=== PATIENT | male | born 1945 | race Caucasian/White ===

== ENCOUNTER 2019-04-05 10:21 | Outpatient (RCR) | payer MEDICARE, MEDICAID, SELFPAY | END 2019-04-23 00:01 | LOC: WOUND 10:21 | PROVIDERS: Family Provider Family Medicine; Visit Provider Surgery | DX: E11.621 Type 2 diabetes mellitus with foot ulcer (principal); L97.422 Non-pressure chronic ulcer of left heel and midfoot with fat layer exposed; I96 Gangrene, not elsewhere classified | CPT/HCPCS: 11042 ×2 ==

== ENCOUNTER → 2019-05-06 18:12 | Outpatient (BNVA) | payer MEDICARE, MEDICAID, SELFPAY | PROVIDERS: Family Provider Family Medicine; PCP Family Medicine; Visit Provider Family Medicine | DX: E11.40 Type 2 diabetes mellitus with diabetic neuropathy, unspecified (principal); E11.621 Type 2 diabetes mellitus with foot ulcer; L97.411 Non-pressure chronic ulcer of right heel and midfoot limited to breakdown of skin; I11.0 Hypertensive heart disease with heart failure; I50.9 Heart failure, unspecified; J44.9 Chronic obstructive pulmonary disease, unspecified; I73.9 Peripheral vascular disease, unspecified; K21.9 Gastro-esophageal reflux disease without esophagitis | CPT/HCPCS: 80053; 83036; 85025 ==

== ENCOUNTER 2019-05-24 12:55 | Outpatient (RCR) | payer MEDICARE, MEDICAID, SELFPAY | END 2019-05-24 23:59 | disposition home or self-care (01) | LOC: WOUND 12:55 | PROVIDERS: Family Provider Family Medicine; PCP Family Medicine; Visit Provider Surgery | DX: E11.621 Type 2 diabetes mellitus with foot ulcer (principal); L97.422 Non-pressure chronic ulcer of left heel and midfoot with fat layer exposed; L97.412 Non-pressure chronic ulcer of right heel and midfoot with fat layer exposed; I96 Gangrene, not elsewhere classified | CPT/HCPCS: 11042; L3260 ==

== ENCOUNTER 2019-06-21 08:42 | Outpatient (RCR) | payer MEDICARE, MEDICAID, SELFPAY ==
--- NOTE | 2019-06-03 12:47 | XR_ITS ---
WS: [id number] Right foot, 3 views, 06/03/2019 Clinical Data: PAIN/REDNESS Comparison: Right foot, 08/09/2018. Findings: A distal right fifth metatarsal has been resected. No evidence of osteomyelitis is seen. The phalange s and remainder of the metatarsals are unremarkable. The tarsal bones are normal. There are calcifica tions in the overton of the small arteries of the distal leg. XR/XR foot RT min 3V* [id number] Impression: 1. 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 2. No evidence of osteomyelitis.
== END 2019-06-22 23:59 | disposition home or self-care (01) ==
LOC: WOUND 08:42
PROVIDERS: Family Provider Family Medicine; PCP Family Medicine; Visit Provider Surgery
DX: E11.621 Type 2 diabetes mellitus with foot ulcer (principal); L97.422 Non-pressure chronic ulcer of left heel and midfoot with fat layer exposed; M79.671 Pain in right foot; Z89.421 Acquired absence of other right toe(s)
CPT/HCPCS: 11042; 73630

== ENCOUNTER 2019-07-19 11:46 | Outpatient (RCR) | payer MEDICARE, MEDICAID, SELFPAY ==
--- NOTE | 2019-07-19 | XR_ITS ---
WS: [id number] LEFT FOOT: 3 VIEW(S) TECHNIQUE: PA, oblique and lateral. HISTORY: PAIN, REDNESS, NON HEALING ULCER COMPARISON: 06/03/2019 No acute fracture or dislocation. Normal tarsal/metatarsal alignment. Soft tissue ulceration posterior to the calcaneus is not identified radiographically. There is a smal l amount of soft tissue edema. There is calcification in the soft tissue over the plantar surface of the calcaneus. Extensive arterial calcification. No osteomyelitis. XR/XR foot LT min 3V* [id number] IMPRESSION: No osteomyelitis. Soft tissue ulceration not identified radiographically. Peripheral arterial disease.
== END 2019-07-23 23:59 | disposition home or self-care (01) ==
LOC: WOUND 11:46
PROVIDERS: Family Provider Family Medicine; PCP Family Medicine; Visit Provider Surgery
DX: E11.621 Type 2 diabetes mellitus with foot ulcer (principal); L97.422 Non-pressure chronic ulcer of left heel and midfoot with fat layer exposed; M79.672 Pain in left foot; I73.9 Peripheral vascular disease, unspecified
CPT/HCPCS: 11042; 73630

== ENCOUNTER 2019-08-02 10:01 | Outpatient (CLI) | payer MEDICARE, MEDICAID, SELFPAY ==
--- NOTE | 2019-08-02 10:12 | CT_ITS ---
NOTE: Report was unsigned for reason: Order was edited. Original Signature date and time was: 08/02/19 1200 WS: [id number] CT LEFT FOOT, WITH AND WITHOUT CONTRAST. HISTORY: PAIN,REDNESS,NON HEALING ULCER, ATTENTION: LEFT HEEL R/O osteomyelitis Technique: All CT scans at [facility] use at least one of these dose optimization techniques: automated exposure control; mA and/or kV adjustment per patient size (includes targeted exams where dose is matched to clinical indication); or iterative reconstruction. DLP: 1405.04 mGy-cm. Contrast: Visipaque 95 mL IV. COMPARISON: LEFT foot radiograph 07/19/2019. Superficial soft tissue ulceration over the plantar surface of the calcaneus. Ulceration extends over a width of 9 mm. The soft tissue ulceration extending into the plantar soft tissues to the plantar fascia and the calcaneus. The entire phlegmonous collection measures 2.5 x 3.0 x 1.2 cm. There is focal infiltrating fluid centrally consistent with an abscess measuring 1.2 x 0.9 cm. There is also abundant soft tissue edema surrounding the posterior foot. Cortex of the calcaneus is intact. No osteomyelitis. Inflammatory process does extend to the plantar surface of the calcaneus. Distal Achilles tendon is intact. There is increase fluid along the distal peroneus [facility] [id number] IMPRESSION: 1. No evidence for osteomyelitis or bone destruction. 2. Soft tissue ulceration along the plantar surface at the level of the calcan eus with the fluid distended tract extending towards the calcaneus. There is a central 1.2 x 0.9 cm abscess with a large amount of surrounding phlegmonous roro nges and cellulitis centered over the plantar surface of the calcaneus.
[2019-08-02 11:16] LABS: Blood Urea Nitrogen 23 mg/dL (8-23)
[2019-08-02] MEDS: iodixanol 320 mg/mL 100mL Btl IV (11:46)
== END 2019-08-02 10:02 | disposition home or self-care (01) ==
LOC: RADWPI 10:08
PROVIDERS: Family Provider Family Medicine; PCP Family Medicine; Visit Provider Surgery
DX: M79.672 Pain in left foot (principal); E11.621 Type 2 diabetes mellitus with foot ulcer; L97.529 Non-pressure chronic ulcer of other part of left foot with unspecified severity
CPT/HCPCS: 11043; 73701; 73702; 82565; 84520; Q9967

== ENCOUNTER 2019-08-06 13:12 | Emergency (ER) | payer MEDICARE, MEDICAID, SELFPAY ==
[2019-08-06 13:24] VITALS: BP 120/83; PULSE 80; RESP 14; TEMP 36.9; O2SAT 98; BMI 27.4
--- NOTE | 2019-08-06 13:39 | ED_ITS ---
HPI - Wound/Laceration General: Chief Complaint: Wound/Laceration Stated Complaint: fever Time Seen by Provider: 08/06/19 13:33 History of Present Illness: HPI narrative: Patient is a 74-year-old male who comes to the ED for evaluation of chronic foot ulcer. Patient's sister was present since the patient has a mental disability. Patient was sent over to the ED by wound care clinic. Patient had a temperature of 99 ?F with increasing erythema and warmth around left foot ulcer. The wound clinic wanted patient to come to the ED to be evaluated and get IV antibiotics. Patient had a CT of his left foot done last Monday to evaluate for any bone involvement. Patient is also complaining of increased pain around foot ulcer. Associated symptoms: Reports fever(s); Denies chills, nausea or vomiting Review of Systems Const: Reports: fever; Denies: chills or fatigue Eyes: Denies: change in vision or eye discomfort ENMT: Denies: throat pain, painful swallowing, nasal discharge or nasal congestion Card: Denies: chest pain, palpitations, edema, swelling of feet/ankles, shortness of breath on exertion or shortness of breath when lying down Resp: Denies: shortness of breath, productive cough or non-productive cough GI: Denies: abdominal pain, nausea, vomiting, diarrhea, constipation or blood in stool : Denies: flank pain, difficulty urinating, painful urination or blood in urine Musc: Denies: neck pain, back pain or extremity swelling Skin/Breast: Reports: new lesion (chronic Left foot ulcer); Denies: rash Neuro: Denies: headache, numbness in extremities or weakness in extremities [facility] ED PFSH: Medical History BPH (benign prostatic hyperplasia) Congestive heart failure Diabetes mellitus with diabetic neuropathy, without long-term current use of insulin Diabetic foot ulcer GERD (gastroesophageal reflux disease) Hypertension PAD (peripheral artery disease) S/P angiogram of extremity Unspecified intellectual disabilities Surgical History S/P TURP (transurethral resection of prostate) Social History Smoking and tobacco status: never smoked Second hand smoke exposure: No Smoking risk assessment/counseling performed?: No Alcohol intake: never Desire information about alcohol rehabilitation?: No Counseling given: No Desire information about substance/drug rehabilitation?: No Counseling given: No Current occupational status: disabled Current gender identity: Male Physical Exam Const: COMMON NORMALS: no apparent distress and alert EXAM LIMITATIONS: other limitations (Pt has a mental disability and Sister is dry transfer man.) HENMT: COMMON NORMALS: normocephalic HEAD & SCALP: normocephalic MOUTH: oral and palatal mucosa normal THROAT: posterior oropharynx normal and uvula midline Neck/C-Spine: COMMON NORMALS: supple GENERAL: Yes normal visual inspection Resp: COMMON NORMALS: normal respiratory effort, no retractions, no use of accessory muscles and clear to auscultation bilaterally AUSCULTATION: clear to auscultation bilaterally Cardio: COMMON NORMALS: regular rate, regular rhythm, S1 normal heart sound, S2 normal heart sound, no gallops, no clicks, no murmurs and peripheral pulses 2+ throughout RATE: regular rate RHYTHM: regular rhythm HEART SOUNDS: S1 normal and S2 normal PERIPHERAL PULSES: pulses 2+ throughout GI: COMMON NORMALS: normal to inspection, nondistended, normoactive bowel sounds, soft to palpation, non-tender and no masses PALPATION: Yes soft : COMMON NORMALS: Yes no CVA tenderness BLADDER/KIDNEY EXAM: Yes no CVA tenderness Back/Pelvis: COMMON NORMALS: no CVA tenderness Extremity: COMMON NORMALS: normal capillary refill GENERAL: Yes normal exam except as noted LEFT LOWER EXTREMITY: Yes foot & digits Left foot and digits: Yes inspection (1 cm chronic ulcer that has packing in it. There is surrounding erythema on the heel and medial ankle.) Neuro: SENSORIUM/ORIENTATION: Yes alert Skin: WOUNDS: Yes wounds noted (Wound had packing inside of it.) size (1cm), drainage and with surrounding erythema Course Vital Signs: Vital signs: Vital Signs Temperature 98.5 F 08/06/19 13:24 Pulse Rate 83 08/06/19 18:16 Respiratory Rate 16 08/06/19 18:16 Blood Pressure 148/66 08/06/19 18:16 Pulse Oximetry 97 08/06/19 18:16 MDM - Wound/Laceration MDM Narrative: Medical decision making narrative: Patient is a 74-year-old male who comes to the ED with a chronic foot ulcer. Patient was sent over by wound care for IV antibiotics due to patient having an elevated temperature and warmth and redness around the ulcer. Patient had a CT of the left lower extremity on Monday, August 01 and I have reviewed the results and it showed no osteomyelitis or bone destruction present. While here in the ED, x-ray of left foot did not show any signs of osteomyelitis. Labs?remarkable for elevated white blood cell count 10.9 and a creatinine of 1.7. Patient has a history of elevated creatinine and has known chronic kidney disease. ESR was 68 and CRP was 115. Patient was given IV antibiotics while here in the ED vancomycin and Rocephin. Patient was then discharged and he has his next follow-up appointment with wound care in a couple days (Monday, August 08). I sent him home with a prescription for Bactrim. Patient and his sister understood and agreed with plan. Lab Data: Attestation: I reviewed the patient's lab results. Labs: Lab Results 08/06/19 08/06/19 08/06/19 Range/Units 14:28 14:28 14:28 WBC 10.9 H (4.0-10.0) 10^3/ uL RBC 4.12 (4.1-5.3) 10^6/u L Hgb 11.5 L (11.7-16.6) g/dL Hct 37.0 L (42.0-52.0) % MCV 89.8 (80-94) fL MCH 27.9 L (28.0-34.0) pg MCHC 31.1 (30.0-36.0) g/dL RDW 12.7 (12.1-15.1) % Plt Count 224 (130-400) 10^3/c mm MPV 10.5 H (7.4-10.4) fL Neut % (Auto) 72.1 % Lymph % (Auto) 11.5 % [place] % (Auto) 14.3 % Eos % (Auto) 1.1 % Baso % (Auto) 0.3 % Neut # (Auto) 7.9 H (1.8-7.7) 10^3/u L Lymph # (Auto) 1.3 (0.8-4.8) 10^3/u L [place] # (Auto) 1.6 H (0.2-0.9) 10^3/u L Eos # (Auto) 0.1 (0.0-0.8) 10^3/u L Baso # (Auto) 0.0 (0.0-0.1) 10^3/u L Nucleated RBC % (a uto) 0 % Nucleated RBCs # 0.0 /100WBC ESR 68 H (0-10) mm/hr Sodium 135 L (136-145) mmol/L Potassium 3.9 (3.5-5.1) mmol/L Chloride 95 L (98-107) mmol/L Carbon Dioxide 28 (22-29) mmol/L Anion Gap 15.9 (5-19) BUN 25 H (8-23) mg/dL Creatinine 1.7 H (0.7-1.2) mg/dL Glucose 136 H (65-115) mg/dL Calculated Osmolal ity 279 L (285-295) mOsm/k g Calcium 9.2 (8.5-10.5) mg/dL Total Bilirubin 0.4 (0.15-1.2) mg/dL AST 13 (0-40) U/L ALT 14 (0-41) U/L Alkaline Phosphata se 73 (40-130) IU/L C-Reactive Protein 115.4 H (0.0-4.9) mg/L Total Protein 7.1 (6.6-8.7) g/dL Albumin 3.4 L (3.5-5.2) g/dL Globulin 3.7 (1.3-4.6) g/dL Imaging Data^: Xray Ortho: Attestation: I personally reviewed and interpreted this imaging study as follows: Radiologist's impression: [address] [address] XRay Report Signed Patient: Macario Miller Unit #: [id number] : 1945 Acct#:[id number] Age/Sex: 74 / M ADM Date: 08/06/19 Loc: ER Room/Bed: Attending Dr: Ordering Provider/Ordering MD: Marbin Jiménez Date of Service: 08/06/19 Procedure(s): XR foot LT 2V 46514 Accession Number(s): [id number] Report Number: [id number] WS: [id number] LEFT FOOT: 2 VIEW(S) TECHNIQUE: PA and lateral. HISTORY: left foot pain with chronic ulcer COMPARISON: 07/19/2019 No acute fracture or dislocation. Soft tissue ulceration over the plantar surface of the calcaneus measures 8 mm in diameter. Ulceration extends 12 mm into the soft tissue. Vascular calcifications. Osteopenia. XR/XR foot LT 2V 17775 IMPRESSION: Soft tissue ulceration on the plantar surface of the foot at the level of the calcaneus. No osteomyelitis. Dictated By: Summer Chiu DO Signed By: Summer Chiu DO Signed Date/Time: 08/06/191455 DD/ 53 Discharge Plan Discharge Patient Disposition: Home, Self-Care Clinical Impression: Diabetic foot ulcer Qualifiers: Diabetic foot ulcer location: heel Diabetes mellitus type: type 2 Laterality: left Non-pressure ulcer stage: unspecified non-pressure ulcer stage Qualified Code(s): E11.621 - Type 2 diabetes mellitus with foot ulcer Cellulitis Qualifiers: Site of cellulitis: extremity Site of cellulitis of extremity: lower extremity Laterality: left Qualified Code(s): L03.116 - Cellulitis of left lower limb Condition: Stable Prescriptions: New Bactrim DS 800-160 mg tablet 1 tab PO BID 10 Days Qty: 20 RF: 0 No Action aspirin [Adult Aspirin Regimen] 81 mg tablet,delayed release (DR/EC) 81 mg PO DAILY RF: 0 furosemide 20 mg tablet 10 mg PO BID 30 Days Qty: 30 RF: 5 glipizide 10 mg tablet 10 mg PO DAILY 30 Days Qty: 30 RF: 5 metformin 500 mg tablet extended release 24 hr 1,000 mg PO .BEDTIME 30 Days Qty: 30 RF: 5 potassium chloride 10 mEq capsule, extended release 10 meq PO DAILY 30 Days Qty: 30 RF: 5 (DME) Accu-Chek Kinsey Plus test strp Strip See Rx Instructions .ROUTE .MEDSUPPLY Qty: 10 RF: 0 tamsulosin 0.4 mg capsule 0.4 mg PO .BEDTIME RF: 0 vitamin B complex [B Complex-Vitamin B12] Tablet 1 tab PO DAILY RF: 0 zinc 50 mg tablet ? mg PO DAILY RF: 0 cimetidine 200 mg tablet 200 mg PO BID 30 Days Qty: 60 RF: 5 miscellaneous medical supply Misc See Rx Instructions miscellaneous .COMPLEX Qty: 1 RF: 0 ranitidine HCl 75 mg Tablet 75 mg PO DAILY RF: 0 Discharge Orders: Discharge Order (Routine); Ordered 08/06/19 Ordered By: Marbin Jiménez Referrals: Rea Giles MD [Primary Care Provider] - Discharge Diet: Regular Discharge Activity: Resume usual activity Patient Instructions: Cellulitis (ED), Diabetic Foot Ulcers (ED) Activity Restrictions/Additional Instructions: Follow-up at your next wound care appointment on Monday. Take full course of antibiotic as prescribed. Patient take Tylenol 500 mg as needed for any fevers or pain. Make sure patient drinks plenty of fluids and stays hydrated. Discharge Date/Time: 08/06/19 18:17 Coding Level of Care Code ED [employer] for Solo Fwd Exam Comprehensive
--- NOTE | 2019-08-06 14:20 | XR_ITS ---
WS: [id number] LEFT FOOT: 2 VIEW(S) TECHNIQUE: PA and lateral. HISTORY: left foot pain with chronic ulcer COMPARISON: 07/19/2019 No acute fracture or dislocation. Soft tissue ulceration over the plantar surface of the calcaneus measures 8 mm in diameter. Ulceratio n extends 12 mm into the soft tissue. Vascular calcifications. Osteopenia. XR/XR foot LT 2V [id number] IMPRESSION: Soft tissue ulceration on the plantar surface of the foot at the level of the c alcaneus. No osteomyelitis.
[2019-08-06 14:40] VITALS: PULSE 73; RESP 16; O2SAT 97
[2019-08-06 14:50] LABS: Basophils % 0.3 %; Eosinophils # 0.1 10^3/uL (0.0-0.8); Eosinophils % 1.1 %; Hemoglobin 11.5 g/dL (11.7-16.6); Lymphocytes # 1.3 10^3/uL (0.8-4.8); Lymphocytes % 11.5 %; Mean Corpuscular HGB Conc 31.1 g/dL (30.0-36.0); Mean Corpuscular Hemoglobin 27.9 pg (28.0-34.0); Mean Corpuscular Volume 89.8 fL (80-94); Mean Platelet Volume 10.5 fL (7.4-10.4); Monocytes # 1.6 10^3/uL (0.2-0.9); Monocytes % 14.3 %; Neutrophils # 7.9 10^3/uL (1.8-7.7); Neutrophils % 72.1 %; Nucleated Red Blood Cells % 0 %; Platelet Count 224 10^3/cmm (130-400); Red Blood Count 4.12 10^6/uL (4.1-5.3); Red Cell Distribution Width 12.7 % (12.1-15.1); White Blood Count 10.9 10^3/uL (4.0-10.0)
[2019-08-06] MEDS: cefTRIAXone 1,000 MG in sodium chloride 0.9% (plus) 50 ML 100 MG IV (14:51)
[2019-08-06] MEDS: sodium chloride 0.9% 500 ML IV (14:51)
[2019-08-06 15:05] LABS: Alanine Aminotransferase 14 U/L (0-41); Albumin Level 3.4 g/dL (3.5-5.2); Alkaline Phosphatase 73 IU/L (40-130); Anion Gap 15.9 (5-19); Aspartate Amino Transferase 13 U/L (0-40); Blood Urea Nitrogen 25 mg/dL (8-23); Calcium 9.2 mg/dL (8.5-10.5); Carbon Dioxide 28 mmol/L (22-29); Chloride 95 mmol/L (98-107); Globulin 3.7 g/dL (1.3-4.6); Glucose 136 mg/dL (65-115); Osmolality Calculated 279 mOsm/kg (285-295); Potassium 3.9 mmol/L (3.5-5.1); Sodium 135 mmol/L (136-145); Total Bilirubin 0.4 mg/dL (0.15-1.2); Total Protein 7.1 g/dL (6.6-8.7)
[2019-08-06 16:00] VITALS: BP 122/63; RESP 16; O2SAT 96
[2019-08-06 16:02] LABS: Erythrocyte Sedimentation Rate 68 mm/hr (0-10)
[2019-08-06 16:25] LABS: C Reactive Protein 115.4 mg/L (0.0-4.9)
[2019-08-06 17:00] VITALS: BP 123/70; PULSE 76; RESP 15; O2SAT 98
[2019-08-06 18:16] VITALS: BP 148/66; PULSE 83; RESP 16; O2SAT 97
== END 2019-08-06 18:17 | disposition home or self-care (01) ==
PROVIDERS: Emergency Provider Physician Assistant; Family Provider Family Medicine; PCP Family Medicine
DX: E11.621 Type 2 diabetes mellitus with foot ulcer (principal); L97.529 Non-pressure chronic ulcer of other part of left foot with unspecified severity; L03.116 Cellulitis of left lower limb; N40.0 Benign prostatic hyperplasia without lower urinary tract symptoms; I11.0 Hypertensive heart disease with heart failure; I50.9 Heart failure, unspecified; E11.40 Type 2 diabetes mellitus with diabetic neuropathy, unspecified; Z79.4 Long term (current) use of insulin; K21.9 Gastro-esophageal reflux disease without esophagitis; Z79.82 Long term (current) use of aspirin
CPT/HCPCS: 11043; 12345; 73620; 80053; 85025; 85651; 86140; 87040; 96365; 96366; 96367; 99283; J0696; J3370; J7040; J7050

== ENCOUNTER 2019-08-09 11:50 | Inpatient (IN) | payer MEDICARE, MEDICAID, SELFPAY ==
[2019-08-09 12:05] VITALS: BP 135/74; PULSE 101; RESP 18; TEMP 36.8; O2SAT 98; BMI 33.6
--- NOTE | 2019-08-09 12:30 | ECG_ITS ---
Measurements Intervals [place] Rate: 79 P: 22 CT: 193 QRS: -16 QRSD: 91 T: -13 QT: 360 QTc: 414 SINUS RHYTHM MINIMAL VOLTAGE CRITERIA FOR LVH, CONSIDER NORMAL VARIANT [MEETS CRITERIA IN ONE OF: R(aVL), S(V1), R(V5), R(V5/V6)+S(V1)] No previous ECG available for comparison Electronically Signed On 08-09-2019 18:25:23 CDT by Olivia Chairez M.D. [email or web address]
--- NOTE | 2019-08-09 12:31 | XR_ITS ---
WS: [id number] PORTABLE CHEST HISTORY: admission/DM/foot ulcer COMPARISON: 08/13/2018 Lungs are clear and well expanded. No pleural effusion or pneumothorax. Cardiac size: Normal. Mediastinum/Aorta: Mild atherosclerosis aorta. No osseous abnormality seen. XR/XR chest 1V portable [id number] IMPRESSION: Partially calcified aorta. No pneumonia.
--- NOTE | 2019-08-09 12:31 | W.ED.SKABFB ---
HPI - Skin/Abscess/Foreign Bdy General: Chief complaint: Skin/Abscess/Foreign Body Stated complaint: LEFT FOOT PAIN Time Seen by Provider: 08/09/19 12:00 History of Present Illness: HPI narrative: Patient sent here from wound clinic for diabetic foot ulcer on the left foot. Patient has mild dementia. Has history of hypertension diabetes and peripheral artery disease and congestive heart failure. Also neuropathy. Spoke with Dr. williamson he said the patient has not been compliant with weightbearing and he has a ulcer to start on the medial aspect of his left ankle that is tunneled through to the left calcaneus now and feels patient needs to be admitted would like for me to admit to the hospitalist and consult with Dr. Hawkins and Dr. Katz. complaint: other (Diabetic foot ulcer bilateral left worse than right.) Onset (ago): week(s) Tetanus up to date: unsure Location: L foot and R foot Severity: similar to previous episodes Associated symptoms: Deny chills, fever(s), nausea or vomiting Treatments prior to arrival: other (Has been going to wound care) Review of Systems Const: Denies: fever, chills or body aches Eyes: Denies: change in vision or blurry vision ENMT: Denies: throat pain or nasal congestion Card: Denies: chest pain or shortness of breath on exertion Resp: Denies: shortness of breath, productive cough or non-productive cough GI: Denies: abdominal pain, nausea or vomiting : Denies: difficulty urinating Musc: Denies: extremity pain Skin/Breast: Reports: non-healing lesion (Left foot and right foot) and other; Denies: rash Neuro: Denies: headache Psych: Reports: other (Mild dementia); Denies: anxiety or depression [place]/Lymph: Denies: easy bruising PFSH ED PFSH: Social History Smoking and tobacco status: never smoked Second hand smoke exposure: No Smoking risk assessment/counseling performed?: No Alcohol intake: never Desire information about alcohol rehabilitation?: No Counseling given: No Desire information about substance/drug rehabilitation?: No Counseling given: No Current occupational status: disabled Current gender identity: Male Physical Exam Narrative: EXAM NARRATIVE: Extremities are cool feeble pulses. Const: COMMON NORMALS: no apparent distress, average body habitus and alert HENMT: COMMON NORMALS: normocephalic HEAD & SCALP: normal to inspection and normocephalic FACE & SINUS: normal facial exam Eye: COMMON NORMALS: conjunctivae normal GENERAL EYE: normal appearance of both eyes CONJUNCTIVA: Yes conjunctivae normal Neck/C-Spine: COMMON NORMALS: no JVD Chest: COMMONS NORMALS: inspection of chest normal Resp: COMMON NORMALS: normal respiratory effort and clear to auscultation bilaterally AUSCULTATION: clear to auscultation bilaterally Cardio: COMMON NORMALS: no JVD, regular rate and regular rhythm RATE: regular rate RHYTHM: regular rhythm GI: COMMON NORMALS: normal to inspection, nondistended, normoactive bowel sounds Extremity: COMMON NORMALS: normal to inspection and full ROM Neuro: COMMON NORMALS: moves all extremities, no focal motor deficits and no sensory deficits noted SENSORIUM/ORIENTATION: Yes alert Skin: OTHER: Has a wound to the left foot on the medial aspect it is packed with dressing that Dr. wooten put in no significant erythema noted around. Has a boot on the right foot. Course Vital Signs: Vital signs: Vital Signs Temperature 98.3 F 08/09/19 12:05 Pulse Rate 101 H 08/09/19 12:05 Respiratory Rate 18 08/09/19 12:05 Blood Pressure 135/74 08/09/19 12:05 Pulse Oximetry 98 08/09/19 12:05 MDM - Skin/Abscess/Foreign Bdy MDM Narrative: Medical decision making narrative: I spoke with Dr. Angel first about this patient and he given the story. The that I spoke with Dr. Katz through his nurse while he is in surgery he agreed to take the patient as a consult on admission and that spoke with Dr. Mendoza who agreed to admit the patient. Lab Data: Labs: Lab Results 08/09/19 08/09/19 08/09/19 Range/Units 12:50 12:50 12:50 WBC 10.7 H (4.0-10.0) 10^3/ uL RBC 3.92 L (4.1-5.3) 10^6/u L Hgb 10.8 L (11.7-16.6) g/dL Hct 34.8 L (42.0-52.0) % MCV 88.8 (80-94) fL MCH 27.6 L (28.0-34.0) pg MCHC 31.0 (30.0-36.0) g/dL RDW 12.8 (12.1-15.1) % Plt Count 258 (130-400) 10^3/c mm MPV 9.8 (7.4-10.4) fL Neut % (Auto) 82.8 % Lymph % (Auto) 5.5 % [place] % (Auto) 9.7 % Eos % (Auto) 0.6 % Baso % (Auto) 0.3 % Neut # (Auto) 8.9 H (1.8-7.7) 10^3/u L Lymph # (Auto) 0.6 L (0.8-4.8) 10^3/u L [place] # (Auto) 1.0 H (0.2-0.9) 10^3/u L Eos # (Auto) 0.1 (0.0-0.8) 10^3/u L Baso # (Auto) 0.0 (0.0-0.1) 10^3/u L Nucleated RBC % (a uto) 0 % Nucleated RBCs # 0.0 /100WBC PT 14.00 H (10.5-13.3) SECO NDS INR 1.05 (0.8-1.2) APTT 30.7 (23.9-36.7) SECO NDS Sodium 133 L (136-145) mmol/L Potassium 3.8 (3.5-5.1) mmol/L Chloride 94 L (98-107) mmol/L Carbon Dioxide 27 (22-29) mmol/L Anion Gap 15.8 (5-19) BUN 16 (8-23) mg/dL Creatinine 1.7 H (0.7-1.2) mg/dL Glucose 201 H (65-115) mg/dL Calculated Osmolal ity 278 L (285-295) mOsm/k g Calcium 9.2 (8.5-10.5) mg/dL Total Bilirubin 0.2 (0.15-1.2) mg/dL AST 18 (0-40) U/L ALT 19 (0-41) U/L Alkaline Phosphata se 77 (40-130) IU/L C-Reactive Protein 121.8 H (0.0-4.9) mg/L Total Protein 7.2 (6.6-8.7) g/dL Albumin 3.4 L (3.5-5.2) g/dL Globulin 3.8 (1.3-4.6) g/dL EKG Data^: EKG 1: EKG Interpretation Date: 08/09/19 EKG interpretation time: 13:52 Interpretation: But artifact on this EKG is sinus rhythm LVH ventricular rate 79 bpm OK interval 193 ms QRS duration 91 ms Discharge Plan Discharge Patient Disposition: Admitted As Inpatient Clinical Impression: PAD (peripheral artery disease) Hypertension Qualifiers: Hypertension type: essential hypertension Qualified Code(s): I10 - Essential (primary) hypertension Diabetic foot ulcer Qualifiers: Diabetic foot ulcer location: other Diabetes mellitus type: type 2 Laterality: left Non-pressure ulcer stage: with bone involvement without evidence of necrosis Qualified Code(s): E11.621 - Type 2 diabetes mellitus with foot ulcer Condition: Stable Referrals: Rea Giles MD [Primary Care Provider] - Coding Level of Care Code ED Relief Man for Chg Fwd Exam Comprehensive
[2019-08-09 13:02] LABS: Basophils % 0.3 %; Eosinophils # 0.1 10^3/uL (0.0-0.8); Eosinophils % 0.6 %; Hematocrit 34.8 % (42.0-52.0); Hemoglobin 10.8 g/dL (11.7-16.6); Lymphocytes # 0.6 10^3/uL (0.8-4.8); Lymphocytes % 5.5 %; Mean Corpuscular Hemoglobin 27.6 pg (28.0-34.0); Mean Corpuscular Volume 88.8 fL (80-94); Mean Platelet Volume 9.8 fL (7.4-10.4); Monocytes % 9.7 %; Neutrophils # 8.9 10^3/uL (1.8-7.7); Neutrophils % 82.8 %; Nucleated Red Blood Cells % 0 %; Platelet Count 258 10^3/cmm (130-400); Red Blood Count 3.92 10^6/uL (4.1-5.3); Red Cell Distribution Width 12.8 % (12.1-15.1); White Blood Count 10.7 10^3/uL (4.0-10.0)
[2019-08-09 13:11] LABS: INR 1.05 (0.8-1.2)
[2019-08-09 13:12] LABS: Partial Thromboplastin Time 30.7 SECONDS (23.9-36.7)
[2019-08-09 13:22] LABS: Alanine Aminotransferase 19 U/L (0-41); Albumin Level 3.4 g/dL (3.5-5.2); Alkaline Phosphatase 77 IU/L (40-130); Anion Gap 15.8 (5-19); Aspartate Amino Transferase 18 U/L (0-40); Blood Urea Nitrogen 16 mg/dL (8-23); C Reactive Protein 121.8 mg/L (0.0-4.9); Calcium 9.2 mg/dL (8.5-10.5); Carbon Dioxide 27 mmol/L (22-29); Chloride 94 mmol/L (98-107); Globulin 3.8 g/dL (1.3-4.6); Glucose 201 mg/dL (65-115); Osmolality Calculated 278 mOsm/kg (285-295); Potassium 3.8 mmol/L (3.5-5.1); Sodium 133 mmol/L (136-145); Total Bilirubin 0.2 mg/dL (0.15-1.2); Total Protein 7.2 g/dL (6.6-8.7)
[2019-08-09 14:06] LABS: Erythrocyte Sedimentation Rate 85 mm/hr (0-10)
[2019-08-09] MEDS: vancomycin 1,000 MG in sodium chloride 0.9% 250 ML 250 MG IV (14:20)
[2019-08-09] MEDS: piperacillin-tazobactam 2.25 GM in sodium chloride 0.9% (plus) 50 ML IV (14:23)
--- NOTE | 2019-08-09 17:12 | PM.HP ---
Providers/Chief Complaint Admitting Physician: Jm Hardwick Primary Care Provider: Rea Giles MD Chief Complaint: OSTEOMYLITIS History of Present Illness Macario Miller is a 74 year old male with past medical history of dementia, diabetes, hypertension, chronic kidney disease, GERD, peripheral arterial disease, CHF, BPH, GERD, peripheral neuropathy who was sent by to emergency room for evaluation and treatment with IV antibiotics for infected diabetic foot ulcer. The patient does not remember when the ulcer was first diagnosed. However he states that pain, swelling, discharge gotten worse last several days or so. Previous imaging studies did not reveal osteomyelitis. He has been on oral antibiotics for a while without significant improvement. He denies associated fever, chills, nausea, vomiting, diarrhea. He also denies any chest pain, shortness of breath, cough, palpitations, dizziness or lightheadedness. He denies similar episodes in the past. Review of Systems General: Reports: 10 or more systems reviewed and unremarkable except in HPI and below Medications/Allergies Home Medications Medication Instructions Recorded Confirmed Last Taken Type cimetidine 300 mg PO BID 08/09/19 08/09/19 08/09/19 History furosemide 20 mg PO BID 08/09/19 08/09/19 08/09/19 History metformin 1,000 mg PO BEDTIME 08/09/19 08/09/19 08/08/19 History Allergies Allergy/AdvReac Type Severity Reaction Status Date / Time atorvastatin [From Lipitor] AdvReac Mild hand rash Verified 06/21/19 10:23 PFSH Acute PFSH: Medical History BPH (benign prostatic hyperplasia) Congestive heart failure Diabetes mellitus with diabetic neuropathy, without long-term current use of insulin Diabetic foot ulcer GERD (gastroesophageal reflux disease) Hypertension PAD (peripheral artery disease) S/P angiogram of extremity Unspecified intellectual disabilities Surgical History S/P TURP (transurethral resection of prostate) Social History Smoking and tobacco status: never smoked Second hand smoke exposure: No Smoking risk assessment/counseling performed?: No Alcohol intake: never Desire information about alcohol rehabilitation?: No Counseling given: No Desire information about substance/drug rehabilitation?: No Counseling given: No Current occupational status: disabled Current gender identity: Male Vitals/I&O/Wt Last Vital Signs Temp 98.3 F 08/09/19 12:05 Pulse 101 H 08/09/19 12:05 Resp 18 08/09/19 12:05 BP 135/74 08/09/19 12:05 Pulse Ox 98 08/09/19 12:05 Weight last 48 hrs Weight 86.183 kg Physical Exam Narrative: EXAM NARRATIVE: The patient is awake alert and oriented. Certain degree of developmental delay, cognitive dysfunction and possible dementia is present. The patient is also forgetful. No evidence of acute distress. Responses are mostly adequate. Skin is warm and dry. Dry mucous membranes Neck supple, no JVD Lungs clear bilaterally Heart S1, S2, regular Abdomen soft, nontender, bowel sounds are present Extremities bilateral pedal edema, chronic venous stasis changes are present. There is a dry dressing over the wound in the area of medial malleolus on the left. No evidence of bleeding or significant discharge at this time. There is no peripheral cyanosis. No calf tenderness bilaterally. Data : 08/09/19 12:50 08/09/19 12:50 Other Labs: Laboratory Results WBC 10.7 10^3/uL (4.0-10.0) H 08/09/19 12:50 RBC 3.92 10^6/uL (4.1-5.3) L 08/09/19 12:50 Hgb 10.8 g/dL (11.7-16.6) L 08/09/19 12:50 Hct 34.8 % (42.0-52.0) L 08/09/19 12:50 MCV 88.8 fL (80-94) 08/09/19 12:50 MCH 27.6 pg (28.0-34.0) L 08/09/19 12:50 MCHC 31.0 g/dL (30.0-36.0) 08/09/19 12:50 RDW 12.8 % (12.1-15.1) 08/09/19 12:50 Plt Count 258 10^3/cmm (130-400) 08/09/19 12:50 MPV 9.8 fL (7.4-10.4) 08/09/19 12:50 Neut % (Auto) 82.8 % 08/09/19 12:50 Lymph % (Auto) 5.5 % 08/09/19 12:50 [place] % (Auto) 9.7 % 08/09/19 12:50 Eos % (Auto) 0.6 % 08/09/19 12:50 Baso % (Auto) 0.3 % 08/09/19 12:50 Neut # (Auto) 8.9 10^3/uL (1.8-7.7) H 08/09/19 12:50 Lymph # (Auto) 0.6 10^3/uL (0.8-4.8) L 08/09/19 12:50 [place] # (Auto) 1.0 10^3/uL (0.2-0.9) H 08/09/19 12:50 Eos # (Auto) 0.1 10^3/uL (0.0-0.8) 08/09/19 12:50 Baso # (Auto) 0.0 10^3/uL (0.0-0.1) 08/09/19 12:50 Nucleated RBC % (auto) 0 % 08/09/19 12:50 Nucleated RBCs # 0.0 /100WBC 08/09/19 12:50 ESR 85 mm/hr (0-10) H 08/09/19 12:50 PT 14.00 SECONDS (10.5-13.3) H 08/09/19 12:50 INR 1.05 (0.8-1.2) 08/09/19 12:50 APTT 30.7 SECONDS (23.9-36.7) 08/09/19 12:50 Sodium 133 mmol/L (136-145) L 08/09/19 12:50 Potassium 3.8 mmol/L (3.5-5.1) 08/09/19 12:50 Chloride 94 mmol/L (98-107) L 08/09/19 12:50 Carbon Dioxide 27 mmol/L (22-29) 08/09/19 12:50 Anion Gap 15.8 (5-19) 08/09/19 12:50 BUN 16 mg/dL (8-23) 08/09/19 12:50 Creatinine 1.7 mg/dL (0.7-1.2) H 08/09/19 12:50 Glucose 201 mg/dL (65-115) H 08/09/19 12:50 Calculated Osmolality 278 mOsm/kg (285-295) L 08/09/19 12:50 Calcium 9.2 mg/dL (8.5-10.5) 08/09/19 12:50 Total Bilirubin 0.2 mg/dL (0.15-1.2) 08/09/19 12:50 AST 18 U/L (0-40) 08/09/19 12:50 ALT 19 U/L (0-41) 08/09/19 12:50 Alkaline Phosphatase 77 IU/L (40-130) 08/09/19 12:50 C-Reactive Protein 121.8 mg/L (0.0-4.9) H 08/09/19 12:50 Total Protein 7.2 g/dL (6.6-8.7) 08/09/19 12:50 Albumin 3.4 g/dL (3.5-5.2) L 08/09/19 12:50 Globulin 3.8 g/dL (1.3-4.6) 08/09/19 12:50 Impressions Chest X-Ray 08/09/19 12:31 IMPRESSION: Partially calcified aorta. No pneumonia. Micro: Microbiology 08/09/19 12:50 Blood Culture - Preliminary Blood SPECIMEN COLLECTED 08/09/19 12:55 Blood Culture - Preliminary Blood SPECIMEN COLLECTED A&P Additional A&P Information Right lower extremity diabetic foot ulcer, infected. Osteomyelitis is suspected. Dr. Hawkins, podiatry is consulted by emergency room. I will defer the choice of imaging studies to him. Wound cultures are obtained. The patient is started on vancomycin and Zosyn which I will continue. Further adjustments to antibiotics based on the tissue culture results. The patient appears slightly dehydrated. I will provide gentle hydration. We will also monitor and replace electrolytes as needed. Diabetes. I will hold metformin. I will start insulin sliding scale. I will check A1c level. Hypertension. Currently well controlled. Continue home management. DVT prophylaxis. Lovenox. Chronic kidney disease. We will continue monitoring kidney function. We will try to avoid nephrotoxic medications. Vancomycin dosing per pharmacy please. History of GERD. We will continue his home medication. History of BPH. Will continue his home medication. The plan of care was discussed with the patient. He verbalized understanding and agreement. Attestations Medical Necessity Statement*: I expect that the patient will require more than 2 midnights in the hospital to complete the plan of care outlined above. Coding Level of Care Code Acute Autocad Electrical Designer for [facility]
[2019-08-09 18:19] VITALS: BP 142/76; PULSE 88; RESP 17; O2SAT 92
[2019-08-09 18:51] VITALS: BP 128/65; PULSE 92; RESP 18; TEMP 36.8; O2SAT 96
[2019-08-09 19:46] LABS: Glucose Point of Care 74 mg/dL (70-110)
[2019-08-09] MEDS: lactated ringers 1,000 ML 50 ML IV (19:47)
[2019-08-09] MEDS: piperacillin-tazobactam 3.375 GM in sodium chloride 0.9% (plus) 50 ML IV (19:47)
[2019-08-09] MEDS: FUROsemide 20 mg Tablet PO (19:51)
[2019-08-09] MEDS: enoxaparin 40 mg/0.4 mL Syringe SUBCUT (19:51)
[2019-08-09] MEDS: tamsulosin 0.4 mg Capsule PO (20:44)
[2019-08-10] VITALS (7 sets, daily range): BP systolic 108–131; BP diastolic 50–75; PULSE 69–83; RESP 17–18; TEMP 36.3–37.3; O2SAT 94–97
[2019-08-10] MEDS: piperacillin-tazobactam 3.375 GM in sodium chloride 0.9% (plus) 50 ML IV ×3 (03:20→17:47)
[2019-08-10 06:09] LABS: Basophils % 0.2 %; Eosinophils # 0.2 10^3/uL (0.0-0.8); Eosinophils % 2.3 %; Hematocrit 31.6 % (42.0-52.0); Hemoglobin 9.9 g/dL (11.7-16.6); Lymphocytes # 1.2 10^3/uL (0.8-4.8); Lymphocytes % 14.3 %; Mean Corpuscular HGB Conc 31.3 g/dL (30.0-36.0); Mean Corpuscular Hemoglobin 28.1 pg (28.0-34.0); Mean Corpuscular Volume 89.8 fL (80-94); Mean Platelet Volume 10.3 fL (7.4-10.4); Monocytes % 12.5 %; Neutrophils # 5.8 10^3/uL (1.8-7.7); Neutrophils % 69.7 %; Nucleated Red Blood Cells % 0 %; Platelet Count 261 10^3/cmm (130-400); Red Blood Count 3.52 10^6/uL (4.1-5.3); Red Cell Distribution Width 12.8 % (12.1-15.1); White Blood Count 8.3 10^3/uL (4.0-10.0)
[2019-08-10 06:22] LABS: Anion Gap 14.7 (5-19); Blood Urea Nitrogen 12 mg/dL (8-23); Calcium 9.2 mg/dL (8.5-10.5); Carbon Dioxide 29 mmol/L (22-29); Chloride 98 mmol/L (98-107); Glucose 61 mg/dL (65-115); Osmolality Calculated 280 mOsm/kg (285-295); Phosphorus 3.7 mg/dL (2.5-4.5); Potassium 3.7 mmol/L (3.5-5.1); Sodium 138 mmol/L (136-145)
[2019-08-10 06:33] LABS: Glucose Point of Care 64 mg/dL (70-110)
[2019-08-10 06:47] LABS: Estmated Average Glucose 146; Hemoglobin A1C 6.7 % (4.0-6.0)
[2019-08-10] MEDS: aspirin 81 mg EC Tablet PO (09:05)
[2019-08-10] MEDS: FUROsemide 20 mg Tablet PO ×2 (09:05→17:47)
[2019-08-10 11:04] LABS: Glucose Point of Care 225 mg/dL (70-110)
--- NOTE | 2019-08-10 13:04 | PM.PN ---
Subjective Subjective: Interval history: Doing well. Denies any active complaints. No uncontrolled pain. No nausea or vomiting. No fevers or chills. No diarrhea. No chest pain, shortness of breath, cough, palpitations. Medications: Reviewed: Yes Medication Review Details: Generic Name Dose Route Start Last Admin Trade Name Lucinda PRN Reason Stop Dose Admin Aspirin 81 mg 08/10/19 09:00 08/10/19 09:05 Aspirin Ec PO 81 mg DAILY OMID Administration Enoxaparin Sodium 40 mg 08/09/19 18:15 08/09/19 19:51 Lovenox SUBCUT 40 mg Q24H OMID Administration Furosemide 20 mg 08/09/19 18:51 08/10/19 09:05 Lasix PO 20 mg BID OMID Administration Piperacillin Sod/T azobactam 50 mls @ 12.5 mls /hr 08/09/19 19:00 08/10/19 11:31 Sod 3.375 gm/ So dium Chloride IV 12.5 mls/hr Q8H OMID Administration Protocol Insulin Aspart 0 unit 08/09/19 18:00 08/10/19 12:56 Novolog SUBCUT 8 unit WM&BEDTIME OMID Administration Protocol Tamsulosin HCl 0.4 mg 08/09/19 21:00 08/09/19 20:44 Flomax PO 0.4 mg BEDTIME OMID Administration Vitals/I&O/Wt Last Vital Signs Temp 99.1 F 08/10/19 11:49 Pulse 79 08/10/19 11:49 Resp 17 08/10/19 11:49 BP 124/74 08/10/19 11:49 Pulse Ox 94 08/10/19 11:49 08/09/19 08/10/19 08/10/19 22:59 06:59 14:59 Intake Total 50 / 50 410 / 410 Output Total 200 / 200 750 / 950 375 / 375 Balance -200 / -200 -700 / -900 35 / 35 Weight last 48 hrs Weight 86.183 kg Physical Exam Narrative: EXAM NARRATIVE: The patient is awake alert and oriented. No evidence of acute distress. Responses are mostly adequate. Skin is warm and dry. Dry mucous membranes Neck supple, no JVD Lungs clear bilaterally Heart S1, S2, regular Abdomen soft, nontender, bowel sounds are present Extremities bilateral pedal edema, chronic venous stasis changes are present. There is a dry dressing over the wound in the area of medial malleolus on the left. No evidence of bleeding or significant discharge at this time. There is no peripheral cyanosis. No calf tenderness bilaterally. Data : 08/10/19 05:20 08/10/19 05:20 Micro: Microbiology 08/09/19 12:55 Blood Culture - Preliminary Blood NEGATIVE TO DATE 08/09/19 12:50 Blood Culture - Preliminary Blood NEGATIVE TO DATE 08/09/19 13:22 Wound Culture - Preliminary Ankle - #1 Gram Negative Rods A&P Additional A&P Information Right lower extremity diabetic foot ulcer, infected. Osteomyelitis is suspected. Dr. Hawkins, podiatry is consulted by emergency room. I will defer the choice of imaging studies to him. Wound cultures are obtained. The patient is started on vancomycin and Zosyn which I will continue. Further adjustments to antibiotics based on the tissue culture results. Dehydration resolved. Stopped. Diabetes. Slightly hypoglycemic this morning. Will decrease the dose of glipizide. Continue insulin sliding scale. Hypertension. Currently well controlled. Continue home management. Anemia. Mild. Stable. Continue monitoring. DVT prophylaxis. Lovenox. Chronic kidney disease. We will continue monitoring kidney function. We will try to avoid nephrotoxic medications. Vancomycin dosing per pharmacy please. History of GERD. We will continue his home medication. History of BPH. Will continue his home medication. The plan of care was discussed with the patient. He verbalized understanding and agreement. Attestations Medical Necessity Statement*: The plan of care requires that the patient remains hospitalized. Coding Level of Care Code Acute Community Outreach Director for [facility]
--- NOTE | 2019-08-10 13:43 | P.CONIM_ITS ---
Providers/Reason For Consult Consulting Physican/Specialty*: Jm Hardwick Reason for Consult*: Left foot wound Attending Physician: Jm Hardwick Primary Care Provider: Rea Giles MD History of Present Illness History of Present Illness Macario Miller is a 74 year old male with multiple comorbidities who was seen in the wound care by my partner Dr. Freitas. Patient denies any fevers chills and mainly complains of foot pain. The wound was debrided yesterday and patient is referred to the hospital for IV antibiotics due to worsening cellulitis in spite of being on oral antibiotics. Patient is a diabetic and is not sure of the etiology of the origin of the wound Review of Systems General: Reports: 10 or more systems reviewed and unremarkable except in HPI and below Meds/Allergies Home Medications and Allergies Home Medications Medication Instructions Recorded Confirmed Type tamsulosin 0.4 mg capsule 0.4 mg PO BEDTIME cap 05/04/19 08/09/19 History aspirin 81 mg tablet,delayed 81 mg PO DAILY 05/06/19 08/09/19 History release glipizide 10 mg tablet 10 mg PO DAILY 30 Days #30 tab 05/06/19 08/09/19 Rx potassium chloride 10 mEq 10 meq PO DAILY 30 Days #30 cap 05/06/19 08/09/19 Rx capsule,extended release vitamin B complex 1 tab PO DAILY 06/12/19 08/09/19 History zinc 50 mg tablet See Rx Instructions .ROUTE 06/12/19 08/09/19 History .COMPLEX tab miscellaneous medical supply See Rx Instructions MISCELLANEOUS 08/05/19 08/09/19 Rx .COMPLEX #1 each ranitidine HCl 150 mg PO DAILY 08/06/19 08/09/19 History sulfamethoxazole-trimethoprim 1 tab PO BID 10 Days #20 tab 08/06/19 08/09/19 Rx [Bactrim DS] cimetidine 300 mg PO BID 08/09/19 08/09/19 History furosemide 20 mg PO BID 08/09/19 08/09/19 History metformin 1,000 mg PO BEDTIME 08/09/19 08/09/19 History Allergies Allergy/AdvReac Type Severity Reaction Status Date / Time atorvastatin [From Lipitor] AdvReac Mild hand rash Verified 06/21/19 10:23 Current Medications Current Medications Generic Name Dose Route Start Last Admin Trade Name Freq PRN Reason Stop Dose Admin Aspirin 81 mg 08/10/19 09:00 08/10/19 09:05 Aspirin Ec PO 81 mg DAILY MOID Administration Enoxaparin Sodium 40 mg 08/09/19 18:15 08/09/19 19:51 Lovenox SUBCUT 40 mg Q24H OMID Administration Furosemide 20 mg 08/09/19 18:51 08/10/19 09:05 Lasix PO 20 mg BID OMID Administration Piperacillin Sod/Tazobactam 50 mls @ 12.5 mls/hr 08/09/19 19:00 08/10/19 11:31 Sod 3.375 gm/ Sodium Chloride IV 12.5 mls/hr Q8H OMID Administration Protocol Insulin Aspart 0 unit 08/09/19 18:00 08/10/19 12:56 Novolog SUBCUT 8 unit WM&BEDTIME OMID Administration Protocol Tamsulosin HCl 0.4 mg 08/09/19 21:00 08/09/19 20:44 Flomax PO 0.4 mg BEDTIME OMID Administration PFSH Acute PFSH: Medical History BPH (benign prostatic hyperplasia) Congestive heart failure Diabetes mellitus with diabetic neuropathy, without long-term current use of insulin Diabetic foot ulcer GERD (gastroesophageal reflux disease) Hypertension PAD (peripheral artery disease) S/P angiogram of extremity Unspecified intellectual disabilities Surgical History S/P TURP (transurethral resection of prostate) Social History Smoking and tobacco status: never smoked Second hand smoke exposure: No Smoking risk assessment/counseling performed?: No Alcohol intake: never Desire information about alcohol rehabilitation?: No Counseling given: No Desire information about substance/drug rehabilitation?: No Counseling given: No Current occupational status: disabled Current gender identity: Male Vitals/I&O/Wt Last Vital Signs Temp 99.1 F 08/10/19 11:49 Pulse 79 08/10/19 11:49 Resp 17 08/10/19 11:49 BP 124/74 08/10/19 11:49 Pulse Ox 94 08/10/19 11:49 08/09/19 08/10/19 08/10/19 22:59 06:59 14:59 Intake Total 50 / 50 410 / 410 Output Total 200 / 950 750 / 950 375 / 375 Balance -200 / -900 -700 / -900 35 / 35 Weight last 48 hrs Weight 190 lb Physical Exam Narrative: EXAM NARRATIVE: HEENT: Normocephalic Eye: Sclera /conjunctiva normal Respiratory and chest: Bilateral clear breath sounds on auscultation Cardiovascular: Normal S1 and S2 heart sounds Abdomen: Soft to palpation Neurological: Oriented to place person and time Skin: Intact, 1 x 1 cm wound on the medial aspect of the left foot posterior to the lateral malleolus which tunnels about 6 cm. Patient also has a wound on the dorsum of the foot which measures 1 x 1 cm, good granulation tissue, minimal surrounding erythema, no significant purulent drainage noted Data Micro: Micro: Microbiology 08/09/19 12:55 Blood Culture - Pr eliminary Blood NEGATIVE TO AGGIE E 08/09/19 12:50 Blood Culture - Pr eliminary Blood NEGATIVE TO AGGIE E 08/09/19 13:22 Wound Culture - Pr eliminary Ankle - #1 Gram Negative R ods A&P Assessment and plan (1) Diabetic foot ulcer: 74-year-old gentleman with multiple comorbidities who has diabetic foot ulcer with associated cellulitis. At this point the wounds look good and does not need any surgical debridement. Patient will need continued inpatient stay for IV antibiotics. Hopefully can be discharged home back on oral of antibiotics in the next 48 hours. 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
[2019-08-10] MEDS: vancomycin 1,000 MG in sodium chloride 0.9% 250 ML 250 MG IV (14:29)
--- NOTE | 2019-08-10 14:35 | PC.CHAP ---
Pastoral Care Encounter/Spiritual Assessment Type of Contact [] Declined litigation claim representative visit [] Patient/Family/Request visit [] Outpatient visit [] Follow-up visit [] Physician referral [] Code/Alert [X] Routine visit [] Staff referral [] Actively dying [] Patient sleeping [] Family support [] [] Out of room [] Palliative care [] [] Receiving care in room [] Pre-surgical visit [] Trauma [] Long length of stay [] ICU visit [] Other: Relational/Emotional Strength [] Patient feels connected with others/family/visitors/staff [] Distress [] Loneliness/isolation [] Abandonment Spirituality of Patient [] Person of Stacie [] Attends Quaker of their Stacie [] Believes in Prayer [] Reads Bible or Buddhism materials [] There are Spiritual issues to be addressed Ice Cream Man Interventions [] Prayer [] Active listening [] Non-anxious presence [] Spiritual/emotional support [] Crisis/trauma care [] Spiritual counseling [] Bereavement support [] Provided bereavement packet [] Provided Bible/devotional materials [] Provided toy/stuffed animal, coloring book to patient or family member [] Provided Communion [] Anointing/Badger [] Salvation [] Completed spiritual assessment [] Other: Impact on Illness or Injury [] Angry [] Fearful [] Anxious [] Often cries [] Exhaustion [] Unable to work [] Unable to attend baptist [] Unable to walk/stand [] Unable to read [] Unable to drive [] Unable to eat/drink [] Unable to sleep [] Unable to be with family [] Patient intubated [] Other: Summary Time spent with patient
[2019-08-10 17:10] LABS: Glucose Point of Care 201 mg/dL (70-110)
[2019-08-10] MEDS: enoxaparin 40 mg/0.4 mL Syringe SUBCUT (17:46)
[2019-08-10] MEDS: tamsulosin 0.4 mg Capsule PO (20:57)
[2019-08-10 21:19] LABS: Glucose Point of Care 106 mg/dL (70-110)
[2019-08-11] VITALS (7 sets, daily range): BP systolic 97–154; BP diastolic 51–86; PULSE 72–83; RESP 17–20; TEMP 36.6–37.1; O2SAT 94–97
[2019-08-11] MEDS: piperacillin-tazobactam 3.375 GM in sodium chloride 0.9% (plus) 50 ML IV ×3 (03:51→18:24)
[2019-08-11 05:54] LABS: Basophils % 0.3 %; Eosinophils # 0.3 10^3/uL (0.0-0.8); Eosinophils % 3.7 %; Hematocrit 32.8 % (42.0-52.0); Hemoglobin 10.2 g/dL (11.7-16.6); Lymphocytes # 1.4 10^3/uL (0.8-4.8); Lymphocytes % 17.2 %; Mean Corpuscular HGB Conc 31.1 g/dL (30.0-36.0); Mean Corpuscular Hemoglobin 28.1 pg (28.0-34.0); Mean Corpuscular Volume 90.4 fL (80-94); Mean Platelet Volume 10.1 fL (7.4-10.4); Monocytes % 12.5 %; Neutrophils # 5.1 10^3/uL (1.8-7.7); Neutrophils % 64.4 %; Nucleated Red Blood Cells % 0 %; Platelet Count 285 10^3/cmm (130-400); Red Blood Count 3.63 10^6/uL (4.1-5.3); Red Cell Distribution Width 12.8 % (12.1-15.1); White Blood Count 7.9 10^3/uL (4.0-10.0)
[2019-08-11 06:12] LABS: Anion Gap 12.6 (5-19); Blood Urea Nitrogen 14 mg/dL (8-23); Calcium 9.2 mg/dL (8.5-10.5); Carbon Dioxide 30 mmol/L (22-29); Chloride 98 mmol/L (98-107); Glucose 121 mg/dL (65-115); Magnesium 2.1 mg/dL (1.7-2.3); Osmolality Calculated 281 mOsm/kg (285-295); Phosphorus 3.2 mg/dL (2.5-4.5); Potassium 3.6 mmol/L (3.5-5.1); Sodium 137 mmol/L (136-145)
[2019-08-11 06:49] LABS: Glucose Point of Care 121 mg/dL (70-110)
[2019-08-11] MEDS: FUROsemide 20 mg Tablet PO ×2 (08:55→17:35)
[2019-08-11] MEDS: aspirin 81 mg EC Tablet PO (08:55)
[2019-08-11] MEDS: HYDROcodone-acetaminophen 5-325 mg Tablet 1 TAB PO (10:27)
--- NOTE | 2019-08-11 10:42 | P.PN_ITS ---
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 No fevers or chills. Vitals/I&O/Wt Last Vital Signs Temp 98.0 F 08/11/19 07:57 Pulse 72 08/11/19 07:57 Resp 17 08/11/19 07:57 BP 116/62 08/11/19 07:57 Pulse Ox 96 08/11/19 07:57 08/10/19 08/11/19 08/11/19 22:59 06:59 14:59 Intake Total 100 / 510 240 / 240 Output Total 250 / 1065 200 / 1065 Balance -150 / -555 -200 / -555 240 / 240 Weight last 48 hrs Weight 190 lb Physical Exam Narrative: EXAM NARRATIVE: Left foot: Wound has good granulation tissue, erythema is improved, no purulent drainage noted Data : 08/11/19 04:50 08/11/19 04:50 Micro: Microbiology 08/09/19 12:55 Blood Culture - Preliminary Blood NEGATIVE TO DATE 08/09/19 12:50 Blood Culture - Preliminary Blood NEGATIVE TO DATE 08/09/19 13:22 Wound Culture - Preliminary Ankle - #1 Gram Negative Rods A&P Assessment and plan (1) Diabetic foot ulcer: 74-year-old gent with diabetic foot ulcer on IV antibiotics. Wound looks good, no further surgical debridement required. Continue IV antibiotics for 24 hours, as the cellulitis is significantly improved hopefully can go home tomorrow. 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
[2019-08-11 10:56] LABS: Glucose Point of Care 261 mg/dL (70-110)
--- NOTE | 2019-08-11 13:01 | PM.PN ---
Subjective Subjective: Interval history: doing well, no sign events. No uncontrolled pain, F/Ch, diarrhea Vitals/I&O/Wt Last Vital Signs Temp 98.3 F 08/11/19 11:58 Pulse 83 08/11/19 11:58 Resp 17 08/11/19 11:58 BP 152/77 08/11/19 11:58 Pulse Ox 96 08/11/19 11:58 08/10/19 08/11/19 08/11/19 22:59 06:59 14:59 Intake Total 100 / 510 530 / 530 Output Total 250 / 865 200 / 1065 500 / 500 Balance -150 / -355 -200 / -555 30 / 30 Physical Exam Narrative: EXAM NARRATIVE: The patient is awake alert and oriented. No evidence of acute distress. Responses are mostly adequate. Skin is warm and dry. Dry mucous membranes Neck supple, no JVD Lungs clear bilaterally Heart S1, S2, regular Abdomen soft, nontender, bowel sounds are present Extremities bilateral pedal edema, chronic venous stasis changes are present. There is a dry dressing over the wound in the area of medial malleolus on the left. No evidence of bleeding or significant discharge at this time. There is no peripheral cyanosis. No calf tenderness bilaterally. Data : 08/11/19 04:50 08/11/19 04:50 Micro: Microbiology 08/09/19 12:55 Blood Culture - Preliminary Blood NEGATIVE TO DATE 08/09/19 12:50 Blood Culture - Preliminary Blood NEGATIVE TO DATE 08/09/19 13:22 Wound Culture - Preliminary Ankle - #1 Gram Negative Rods A&P Additional A&P Information Right lower extremity diabetic foot ulcer, infected. Wound cultures are obtained. The patient is started on vancomycin and Zosyn which I will continue. d/w dr Katz. No procedures are planned, wound looks good. Dehydration resolved. Stopped. Diabetes. Slightly hypoglycemic this morning. Will decrease the dose of glipizide. Continue insulin sliding scale. Hypertension. Currently well controlled. Continue home management. Anemia. Mild. Stable. Continue monitoring. DVT prophylaxis. Lovenox. Chronic kidney disease. We will continue monitoring kidney function. We will try to avoid nephrotoxic medications. Vancomycin dosing per pharmacy please. History of GERD. We will continue his home medication. History of BPH. Will continue his home medication. The plan of care was discussed with the patient. He verbalized understanding and agreement. Attestations Medical Necessity Statement*: prob DC tomorrow: Home Coding Level of Care Code Acute Tube Tester for [facility]
[2019-08-11] MEDS: vancomycin 1,000 MG in sodium chloride 0.9% 250 ML 250 MG IV (14:35)
[2019-08-11 16:46] LABS: Glucose Point of Care 133 mg/dL (70-110)
[2019-08-11] MEDS: enoxaparin 40 mg/0.4 mL Syringe SUBCUT (17:36)
[2019-08-11 21:16] LABS: Glucose Point of Care 262 mg/dL (70-110)
[2019-08-11] MEDS: tamsulosin 0.4 mg Capsule PO (21:32)
[2019-08-12] MEDS: piperacillin-tazobactam 3.375 GM in sodium chloride 0.9% (plus) 50 ML IV ×2 (03:54→10:27)
[2019-08-12 04:00] VITALS: BP 124/74; PULSE 77; RESP 18; TEMP 36.7; O2SAT 96
[2019-08-12] MEDS: acetaminophen 325 mg Tablet 650 MG PO (04:22)
[2019-08-12 04:58] LABS: Basophils % 0.3 %; Eosinophils # 0.2 10^3/uL (0.0-0.8); Eosinophils % 1.3 %; Hematocrit 36.9 % (42.0-52.0); Hemoglobin 11.3 g/dL (11.7-16.6); Lymphocytes # 1.1 10^3/uL (0.8-4.8); Lymphocytes % 9.5 %; Mean Corpuscular HGB Conc 30.6 g/dL (30.0-36.0); Mean Corpuscular Hemoglobin 27.9 pg (28.0-34.0); Mean Corpuscular Volume 91.1 fL (80-94); Mean Platelet Volume 9.7 fL (7.4-10.4); Monocytes # 0.9 10^3/uL (0.2-0.9); Neutrophils # 9.2 10^3/uL (1.8-7.7); Neutrophils % 78.9 %; Nucleated Red Blood Cells % 0 %; Platelet Count 334 10^3/cmm (130-400); Red Blood Count 4.05 10^6/uL (4.1-5.3); Red Cell Distribution Width 12.8 % (12.1-15.1); White Blood Count 11.6 10^3/uL (4.0-10.0)
[2019-08-12 05:14] LABS: Anion Gap 18.9 (5-19); Blood Urea Nitrogen 20 mg/dL (8-23); Calcium 9.6 mg/dL (8.5-10.5); Carbon Dioxide 28 mmol/L (22-29); Chloride 94 mmol/L (98-107); Glucose 132 mg/dL (65-115); Magnesium 2.2 mg/dL (1.7-2.3); Osmolality Calculated 282 mOsm/kg (285-295); Phosphorus 4.2 mg/dL (2.5-4.5); Potassium 3.9 mmol/L (3.5-5.1); Sodium 137 mmol/L (136-145)
[2019-08-12 06:35] LABS: Glucose Point of Care 119 mg/dL (70-110)
[2019-08-12 07:56] VITALS: BP 123/76; PULSE 71; RESP 18; TEMP 36.4; O2SAT 100
[2019-08-12] MEDS: FUROsemide 20 mg Tablet PO (08:12)
[2019-08-12] MEDS: aspirin 81 mg EC Tablet PO (08:12)
--- NOTE | 2019-08-12 09:12 | PC.SOCIAL ---
*IMM* Patient received the important message from medicare. Original is in the chart, copy gave to the patient.
[2019-08-12] MEDS: HYDROcodone-acetaminophen 5-325 mg Tablet 1 TAB PO (10:26)
[2019-08-12 10:43] LABS: Glucose Point of Care 438 mg/dL (70-110)
[2019-08-12 10:43] LABS: Glucose Point of Care 415 mg/dL (70-110)
[2019-08-12 11:20] VITALS: BP 131/72; PULSE 74; RESP 18; TEMP 36.9; O2SAT 95
--- NOTE | 2019-08-12 11:25 | P.DS_ITS ---
Discharge Providers Date of Admission: 08/09/19 15:56 Date of Discharge: August 12, 2019 Attending Provider at Admission: Jm Hardwick Attending Provider at Discharge: Jm Hardwick Primary Care Provider: Rea Giles MD Diagnoses at Discharge Discharge Diagnosis (1) Diabetic foot ulcer: Status: Acute Qualifiers: Diabetic foot ulcer location: other Diabetes mellitus type: type 2 Laterality: left Non-pressure ulcer stage: with bone involvement without evidence of necrosis Qualified Code(s): E11.621 - Type 2 diabetes mellitus with foot ulcer; L97.526 - Non-pressure chronic ulcer of other part of left foot with bone involvement without evidence of necrosis Reason for Visit Reason for Visit: Reason For Visit: OSTEOMYLITIS Hospital Course Discharge Summary: The patient is a 74-year-old gentleman who was admitted for the following problems: Right lower extremity diabetic foot ulcer, infected. Wound culture is positive for Proteus await best sensitivities with Cipro. The patient was started on vancomycin and Zosyn. Based on the sensitivity results we are switching him to Cipro today. We appreciate Dr. Katz's input. His recommendation is to continue conservative management and outpatient wound care. Close follow-up with his primary bulk gas specialist. The patient is asked to speak with his specialist and primary care physician about exact duration of antibiotics. He will require frequent wound evaluation and dressing changes. Dehydration resolved. Diabetes. Slightly hypoglycemic initially. The dose of glipizide is decreased. Please continue adjusting his medications. Hypertension. Currently well controlled. Continue home management. Anemia. Mild. Stable. Continue monitoring. DVT prophylaxis. Received Lovenox. Chronic kidney disease. Please continue monitoring his kidney function. History of GERD. We will continue his home medication. History of BPH. Will continue his home medication. The plan of care was discussed with the patient. He verbalized understanding and agreement. Today he is feeling well. He is eager to go home. He denies any active complaints. No fevers or chills, no uncontrolled pain, no nausea or vomiting, no diarrhea. He denies any chest pain, shortness of breath, cough, palpitations. Physical Exam Narrative: EXAM NARRATIVE: The patient is awake alert and oriented. No evidence of acute distress. Responses are mostly adequate. Skin is warm and dry. Dry mucous membranes Neck supple, no JVD Lungs clear bilaterally Heart S1, S2, regular Abdomen soft, nontender, bowel sounds are present Extremities bilateral pedal edema, chronic venous stasis changes are present. Discharge Data Data Completed and Pending: Completed Studies During Hospitalization Category Date Time Status XR chest 1V gretel ble [id number] Stat Exams 08/09/19 12:31 Completed Pending at discharge Category Date Time Status Blood Culture Sta t Lab 08/09/19 12:50 Results Wound Culture Sta t Lab 08/09/19 13:22 Results Labs from last 24 hours 08/12/19 08/12/19 08/12/19 10:38 10:33 06:31 WBC RBC Hgb Hct MCV MCH MCHC RDW Plt Count MPV Neut % (Auto) Lymph % (Auto) [place] % (Auto) Eos % (Auto) Baso % (Auto) Neut # (Auto) Lymph # (Auto) [place] # (Auto) Eos # (Auto) Baso # (Auto) Nucleated RBC % (a uto) Nucleated RBCs # Sodium Potassium Chloride Carbon Dioxide Anion Gap BUN Creatinine Glucose POC Glucose [phone] Calculated Osmolal ity Calcium Phosphorus Magnesium 08/12/19 08/12/19 08/11/19 04:39 04:39 21:01 WBC 11.6 H RBC 4.05 L Hgb 11.3 L Hct 36.9 L MCV 91.1 MCH 27.9 L MCHC 30.6 RDW 12.8 Plt Count 334 MPV 9.7 Neut % (Auto) 78.9 Lymph % (Auto) 9.5 [place] % (Auto) 8.0 Eos % (Auto) 1.3 Baso % (Auto) 0.3 Neut # (Auto) 9.2 H Lymph # (Auto) 1.1 [place] # (Auto) 0.9 Eos # (Auto) 0.2 Baso # (Auto) 0.0 Nucleated RBC % (a uto) 0 Nucleated RBCs # 0.0 Sodium 137 Potassium 3.9 Chloride 94 L Carbon Dioxide 28 Anion Gap 18.9 BUN 20 Creatinine 1.7 H Glucose 132 H POC Glucose 262 Calculated Osmolal ity 282 L Calcium 9.6 Phosphorus 4.2 Magnesium 2.2 08/11/19 16:14 WBC RBC Hgb Hct MCV MCH MCHC RDW Plt Count MPV Neut % (Auto) Lymph % (Auto) [place] % (Auto) Eos % (Auto) Baso % (Auto) Neut # (Auto) Lymph # (Auto) [place] # (Auto) Eos # (Auto) Baso # (Auto) Nucleated RBC % (a uto) Nucleated RBCs # Sodium Potassium Chloride Carbon Dioxide Anion Gap BUN Creatinine Glucose POC Glucose 133 Calculated Osmolal ity Calcium Phosphorus Magnesium Vitals: Last Vital Signs Temp 98.5 F 08/12/19 11:20 Pulse 74 08/12/19 11:20 Resp 18 08/12/19 11:20 BP 131/72 08/12/19 11:20 Pulse Ox 95 08/12/19 11:20 Discharge Plan Discharge Patient Disposition: Home, Self-Care Condition: Stable Prescriptions: New Glipizide 5 mg PO DAILY Qty: 30 RF: 0 Cipro 500 mg tablet 500 mg PO BID Qty: 28 RF: 0 Continued aspirin [Adult Aspirin Regimen] 81 mg tablet,delayed release (DR/EC) 81 mg PO DAILY RF: 0 potassium chloride 10 mEq capsule, extended release 10 meq PO DAILY 30 Days Qty: 30 RF: 5 tamsulosin 0.4 mg capsule 0.4 mg PO BEDTIME RF: 0 vitamin B complex [B Complex-Vitamin B12] Tablet 1 tab PO DAILY RF: 0 zinc 50 mg tablet See Rx Instructions .ROUTE .COMPLEX RF: 0 miscellaneous medical supply Misc See Rx Instructions miscellaneous .COMPLEX Qty: 1 RF: 0 ranitidine HCl 75 mg Tablet 150 mg PO DAILY RF: 0 furosemide 20 mg tablet 20 mg PO BID RF: 0 metformin 500 mg tablet extended release 24 hr 1,000 mg PO BEDTIME RF: 0 Discontinued glipizide 10 mg tablet 10 mg PO DAILY 30 Days Qty: 30 RF: 5 sulfamethoxazole-trimethoprim [Bactrim DS] 800-160 mg tablet 1 tab PO BID 10 Days Qty: 20 RF: 0 cimetidine 200 mg tablet 300 mg PO BID RF: 0 Discharge Orders: Discharge Order (Routine); Ordered 08/12/19 Ordered By: Jm Hardwick Referrals: Rea Giles MD [Primary Care Provider] - Discharge Diet: Diabetic Discharge Activity: Increase activity as tolerated Patient Instructions: Ciprofloxacin (By mouth), Glipizide (By mouth), Hypertension, Heart Failure (DC), Gastroesophageal Reflux Disease (DC), CHF Stoplight Activity Restrictions/Additional Instructions: Please follow-up with your foot/bulk gas specialist as soon as possible. Please note that you are prescribed a different antibiotic for the infection. Please ask your primary care physician or bulk gas specialist about exact duration of the treatment. Please come back to emergency room if you develop any fever, chills, nausea, diarrhea, weakness, increased pain, swelling, redness, discharge from the wound or any other new complaints. Discharge Attestations Time Spent in Discharge Care*: greater than 30 min Quality Metrics Clinical Quality Measures During this hospital stay, did patient experience: None Coding Level of Care Code Acute Feed Miller for [facility] Eddied Diagnoses Diabetic foot ulcer E11.621; L97.526 Diabetic foot ulcer location: other Diabetes mellitus type: type 2 Laterality: left Non-pressure ulcer stage: with bone involvement without evidence of necrosis
[2019-08-12 11:38] VITALS: BP 131/72; PULSE 74; RESP 18; TEMP 36.9; O2SAT 95
--- NOTE | 2019-08-12 14:02 | P.PN_ITS ---
Subjective Subjective: Interval history: Patient is feeling better, denies any nausea or vomiting, pain in the left foot is better Vitals/I&O/Wt Last Vital Signs Temp 98.5 F 08/12/19 11:38 Pulse 74 08/12/19 11:38 Resp 18 08/12/19 11:38 BP 131/72 08/12/19 11:38 Pulse Ox 95 08/12/19 11:38 08/11/19 08/12/19 08/12/19 22:59 06:59 14:59 Intake Total 540 / 1120 650 / 650 Output Total 1200 / 2375 275 / 2375 1000 / 1000 Balance -660 / -1255 -275 / -1255 -350 / -350 Physical Exam Narrative: EXAM NARRATIVE: Left foot: Wound has good granulation tissue, no significant purulent drainage, erythema is improved Data : 08/12/19 04:39 08/12/19 04:39 Micro: Microbiology 08/09/19 13:22 Wound Culture - Preliminary Ankle - #1 Proteus mirabilis A&P Assessment and plan (1) Diabetic foot ulcer: With associated cellulitis doing well with IV antibiotics DC home today on oral antibiotics Follow-up in wound care clinic Status: Acute Qualifiers: Diabetic foot ulcer location: other Diabetes mellitus type: type 2 Laterality: left Non-pressure ulcer stage: with bone involvement without evidence of necrosis Qualified Code(s): E11.621 - Type 2 diabetes mellitus with foot ulcer; L97.526 - Non-pressure chronic ulcer of other part of left foot with bone involvement without evidence of necrosis Attestations Medical Necessity Statement*: diabetic foot ulcer Coding Level of Care Code Acute Legal Transcriber for [facility] Fwd Diagnoses Diabetic foot ulcer E11.621; L97.526 Diabetic foot ulcer location: other Diabetes mellitus type: type 2 Laterality: left Non-pressure ulcer stage: with bone involvement without evidence of necrosis
== END 2019-08-12 13:42 | disposition home or self-care (01) | DRG 638 ==
LOC: ER 14:30 → MEDSURG 16:34
PROVIDERS: Emergency Medicine; Admitting Provider Internal Medicine; Emergency Provider Nurse Practitioner Family; Family Provider Family Medicine; PCP Family Medicine; Visit Provider Internal Medicine
DX: E11.621 Type 2 diabetes mellitus with foot ulcer (principal); L97.526 Non-pressure chronic ulcer of other part of left foot with bone involvement without evidence of necrosis; I13.0 Hypertensive heart and chronic kidney disease with heart failure and stage 1 through stage 4 chronic kidney disease, or unspecified chronic kidney disease; E86.0 Dehydration; K21.9 Gastro-esophageal reflux disease without esophagitis; E11.22 Type 2 diabetes mellitus with diabetic chronic kidney disease; N18.9 Chronic kidney disease, unspecified; N40.0 Benign prostatic hyperplasia without lower urinary tract symptoms; E11.649 Type 2 diabetes mellitus with hypoglycemia without coma; Z79.82 Long term (current) use of aspirin; Z79.84 Long term (current) use of oral hypoglycemic drugs; E11.51 Type 2 diabetes mellitus with diabetic peripheral angiopathy without gangrene; E11.42 Type 2 diabetes mellitus with diabetic polyneuropathy; F03.90 Unspecified dementia, unspecified severity, without behavioral disturbance, psychotic disturbance, mood disturbance, and anxiety; I50.9 Heart failure, unspecified; D63.1 Anemia in chronic kidney disease
CPT/HCPCS: 12345; 36415; 36416; 71045; 73620; 80048; 80053; 82962; 83036; 83735; 84100; 85025; 85610; 85651; 85730; 86140; 87040; 87070; 87077; 87186; 93005; 96365; 96366; 96367; 96372; 96375; 99282; 99283; 99285; J0696; J1650; J1815; J2543; J3370; J7040; J7050

== ENCOUNTER 2019-08-16 10:25 | Outpatient (RCR) | payer MEDICARE, MEDICAID, SELFPAY | END 2019-08-22 23:59 | disposition home or self-care (01) | LOC: WOUND 10:25 | PROVIDERS: Family Provider Family Medicine; PCP Family Medicine; Visit Provider Surgery | DX: E11.621 Type 2 diabetes mellitus with foot ulcer (principal); L97.422 Non-pressure chronic ulcer of left heel and midfoot with fat layer exposed; L02.416 Cutaneous abscess of left lower limb | CPT/HCPCS: 11042; 11043 ==

== ENCOUNTER 2019-08-23 10:41 | Outpatient (CLI) | payer MEDICARE, MEDICAID, SELFPAY | END 2019-08-23 10:42 | disposition home or self-care (01) | LOC: WOUND 08-26 13:30 | PROVIDERS: Family Provider Family Medicine; PCP Family Medicine; Visit Provider Surgery | DX: E11.621 Type 2 diabetes mellitus with foot ulcer (principal); L97.422 Non-pressure chronic ulcer of left heel and midfoot with fat layer exposed; L02.416 Cutaneous abscess of left lower limb | CPT/HCPCS: 11042; L1930 ==

== ENCOUNTER 2019-08-30 13:06 | Outpatient (CLI) | payer MEDICARE, MEDICAID, SELFPAY | END 2019-08-30 13:07 | disposition home or self-care (01) | LOC: WOUND 13:08 | PROVIDERS: Family Provider Family Medicine; PCP Family Medicine; Visit Provider Surgery | DX: E11.621 Type 2 diabetes mellitus with foot ulcer (principal); L97.422 Non-pressure chronic ulcer of left heel and midfoot with fat layer exposed | CPT/HCPCS: 11042 ==

== ENCOUNTER 2019-09-06 13:17 | Outpatient (CLI) | payer MEDICARE, MEDICAID, SELFPAY | END 2019-09-06 13:18 | disposition home or self-care (01) | LOC: WOUND 13:19 | PROVIDERS: Family Provider Family Medicine; PCP Family Medicine; Visit Provider Surgery | DX: E11.621 Type 2 diabetes mellitus with foot ulcer (principal); L97.422 Non-pressure chronic ulcer of left heel and midfoot with fat layer exposed | CPT/HCPCS: 11042 ==

== ENCOUNTER 2019-09-13 10:55 | Outpatient (CLI) | payer MEDICARE, MEDICAID, SELFPAY | END 2019-09-13 10:56 | disposition home or self-care (01) | PROVIDERS: Family Provider Family Medicine; PCP Family Medicine; Visit Provider Nurse Practitioner Family | DX: E11.621 Type 2 diabetes mellitus with foot ulcer (principal); L97.422 Non-pressure chronic ulcer of left heel and midfoot with fat layer exposed | CPT/HCPCS: 11042 ==

== ENCOUNTER 2019-09-20 10:25 | Outpatient (CLI) | payer MEDICARE, MEDICAID, SELFPAY | END 2019-09-20 10:26 | disposition home or self-care (01) | LOC: WOUND 10:26 | PROVIDERS: Family Provider Family Medicine; PCP Family Medicine; Visit Provider Surgery | DX: E11.621 Type 2 diabetes mellitus with foot ulcer (principal); L97.422 Non-pressure chronic ulcer of left heel and midfoot with fat layer exposed | CPT/HCPCS: 11042 ==

== ENCOUNTER 2019-10-04 10:20 | Outpatient (CLI) | payer MEDICARE, MEDICAID, SELFPAY | END 2019-10-04 10:21 | disposition home or self-care (01) | LOC: WOUND 10:27 | PROVIDERS: Family Provider Family Medicine; PCP Family Medicine; Visit Provider Thoracic Surgery (Cardiothoracic Vascular Surgery) | DX: M76.821 Posterior tibial tendinitis, right leg (principal) | CPT/HCPCS: G0463 ==

== ENCOUNTER 2019-11-08 09:44 | Outpatient (CLI) | payer MEDICARE, MEDICAID, SELFPAY | END 2019-11-08 09:45 | disposition home or self-care (01) | LOC: WOUND 09:45 | PROVIDERS: Family Provider Family Medicine; PCP Family Medicine; Visit Provider Surgery | DX: E11.621 Type 2 diabetes mellitus with foot ulcer (principal); L97.422 Non-pressure chronic ulcer of left heel and midfoot with fat layer exposed | CPT/HCPCS: 11042 ==

== ENCOUNTER → 2019-11-11 11:30 | Outpatient (BNVA) | payer MEDICARE, MEDICAID, SELFPAY | PROVIDERS: Family Provider Family Medicine; PCP Family Medicine; Visit Provider Family Medicine | DX: E11.9 Type 2 diabetes mellitus without complications (principal); E11.40 Type 2 diabetes mellitus with diabetic neuropathy, unspecified; E11.621 Type 2 diabetes mellitus with foot ulcer; I10 Essential (primary) hypertension; L97.526 Non-pressure chronic ulcer of other part of left foot with bone involvement without evidence of necrosis; I50.9 Heart failure, unspecified; M67.912 Unspecified disorder of synovium and tendon, left shoulder; I50.32 Chronic diastolic (congestive) heart failure | CPT/HCPCS: 80053; 83036; 85025 ==

== ENCOUNTER 2019-11-15 07:57 | Outpatient (CLI) | payer MEDICARE, MEDICAID, SELFPAY ==
--- NOTE | 2019-11-15 08:10 | CT_ITS ---
WS: [id number] NONCONTRAST CT OF THE LEFT FOOT WITH CONTRAST TECHNIQUE: Contrast-enhanced CT of the left foot with coronal and sagittal reformatted images. CLINICAL INFORMATION: PAIN REDNESS, NON HEALING ULCER COMPARISON: None. DLP: 689.[address] scans at [facility] use at least one of these dose optimization techniques: automat ed exposure control; mA and/or kV adjustment per patient size (includes targeted exams where dose is matched to clinical indication); or iterative reconstruction. FINDINGS: Osteopenia. Normal ankle mortise. Normal medial lateral malleolus. Vascular calcification. Soft tissu e edema lower leg and hindfoot. Soft tissue ulceration along the plantar surface of the level of the calcaneus with fluid distended t ract extending to the calcaneus. Associated drain. Previously described abscess and phlegmon have de creased from previous. No significant residual drainable abscess. Tiny amount of residual phlegmon or abscess along the sinus tract extending to the calcaneus. New focal area of osteomyelitis along the sinus tract. This is new from previous with osseous destruction. Focal area of osteomyelitis measures 7 x 11 mm. IMPRESSION: 1. Previously described phlegmon abscess have decreased in size with a no residual drainable fluid c ollection. Persistent sinus tract extends from the skin into the surface of the calcaneus. 2. Small erosive defect along the plantar cortical surface of the calcaneus consistent with osteomy elitis. This is new from previous and measures 7 x 11 mm
[2019-11-15 09:15] LABS: Blood Urea Nitrogen 25 mg/dL (8-23)
[2019-11-15] MEDS: iodixanol 320 mg/mL 100mL Btl IV (09:27)
== END 2019-11-15 07:58 | disposition home or self-care (01) ==
LOC: RADWPI 08:01
PROVIDERS: Family Provider Family Medicine; PCP Family Medicine; Visit Provider Surgery
DX: M79.672 Pain in left foot (principal); L53.9 Erythematous condition, unspecified; L97.529 Non-pressure chronic ulcer of other part of left foot with unspecified severity; L02.612 Cutaneous abscess of left foot
CPT/HCPCS: 73701; 82565; 84520; Q9967

== ENCOUNTER 2019-11-15 09:39 | Outpatient (CLI) | payer MEDICARE, MEDICAID, SELFPAY | END 2019-11-15 09:40 | disposition home or self-care (01) | LOC: WOUND 09:47 | PROVIDERS: Family Provider Family Medicine; PCP Family Medicine; Visit Provider Surgery | DX: E11.621 Type 2 diabetes mellitus with foot ulcer (principal); L97.422 Non-pressure chronic ulcer of left heel and midfoot with fat layer exposed; M79.672 Pain in left foot; L97.529 Non-pressure chronic ulcer of other part of left foot with unspecified severity; L53.9 Erythematous condition, unspecified | CPT/HCPCS: 11042; 73701; 82565; 84520; Q9967 ==

== ENCOUNTER 2019-11-22 10:13 | Outpatient (CLI) | payer MEDICARE, MEDICAID, SELFPAY | END 2019-11-22 10:14 | disposition home or self-care (01) | LOC: WOUND 10:17 | PROVIDERS: Family Provider Family Medicine; PCP Family Medicine; Visit Provider Surgery | DX: E11.621 Type 2 diabetes mellitus with foot ulcer (principal); L97.422 Non-pressure chronic ulcer of left heel and midfoot with fat layer exposed | CPT/HCPCS: 11042 ==

== ENCOUNTER 2019-11-29 09:38 | Outpatient (CLI) | payer MEDICARE, MEDICAID, SELFPAY | END 2019-11-29 09:39 | disposition home or self-care (01) | LOC: WOUND 09:39 | PROVIDERS: Family Provider Family Medicine; PCP Family Medicine; Visit Provider Thoracic Surgery (Cardiothoracic Vascular Surgery) | DX: E11.621 Type 2 diabetes mellitus with foot ulcer (principal); L97.422 Non-pressure chronic ulcer of left heel and midfoot with fat layer exposed | CPT/HCPCS: 11042 ==

== ENCOUNTER 2019-12-06 09:29 | Outpatient (CLI) | payer MEDICARE, MEDICAID, SELFPAY | END 2019-12-06 09:30 | disposition home or self-care (01) | LOC: WOUND 09:30 | PROVIDERS: Family Provider Family Medicine; PCP Family Medicine; Visit Provider Surgery | DX: E11.621 Type 2 diabetes mellitus with foot ulcer (principal); L97.422 Non-pressure chronic ulcer of left heel and midfoot with fat layer exposed; R52 Pain, unspecified; L53.9 Erythematous condition, unspecified; L98.499 Non-pressure chronic ulcer of skin of other sites with unspecified severity | CPT/HCPCS: 11042; 36415; 82565; 84520 ==

== ENCOUNTER 2019-12-06 11:17 | Outpatient (CLI) | payer MEDICARE, MEDICAID, SELFPAY ==
[2019-12-06 13:01] LABS: Blood Urea Nitrogen 24 mg/dL (8-23)
== END 2019-12-06 11:18 | disposition home or self-care (01) ==
LOC: LAB 11:21
PROVIDERS: Family Provider Family Medicine; PCP Family Medicine; Visit Provider Surgery
DX: R52 Pain, unspecified (principal); L53.9 Erythematous condition, unspecified; L98.499 Non-pressure chronic ulcer of skin of other sites with unspecified severity
CPT/HCPCS: 36415; 82565; 84520

== ENCOUNTER → 2019-12-11 09:48 | Day surgery (SDC) | payer MEDICARE, MEDICAID, SELFPAY ==
--- NOTE | 2019-12-11 10:21 | XR_ITS ---
WS: [id number] EXAM: AP CHEST: PORTABLE UPRIGHT DATE OF EXAM: 12/11/2019, 1036 hour COMPARISON: Chest x-ray from 08/09/2019 HISTORY: Patient is 74 years old with PICC line placed. FINDINGS: The cardiac silhouette is stable and within normal limits. The mediastinal contours are similar. Ri ght-sided PICC line has been place ending in the SVC region. The pulmonary vascularity is normal. Lungs are clear as presented. Apices have been excluded from the radiograph. There is no effusion or pneumothorax. No acute bony abnormality is seen. XR/XR chest 1V portable [id number] IMPRESSION: No acute pulmonary disease. Right-sided PICC line ends in the SVC.
[2019-12-11] MEDS: vancomycin 1,000 MG in sodium chloride 0.9% 250 ML 250 MG IV (11:00)
[2019-12-11 13:50] VITALS: BP 146/84; PULSE 95; RESP 18; TEMP 36.7; O2SAT 94
== END ==
PROVIDERS: PCP Family Medicine; Visit Provider Surgery
DX: E11.621 Type 2 diabetes mellitus with foot ulcer (principal); L97.509 Non-pressure chronic ulcer of other part of unspecified foot with unspecified severity
CPT/HCPCS: 36569; 71045; 96365; J3370; J7050

== ENCOUNTER 2019-12-13 09:56 | Outpatient (CLI) | payer MEDICARE, MEDICAID, SELFPAY | END 2019-12-13 09:57 | disposition home or self-care (01) | LOC: WOUND 09:58 | PROVIDERS: PCP Family Medicine; Visit Provider Surgery | DX: E11.621 Type 2 diabetes mellitus with foot ulcer (principal); L97.422 Non-pressure chronic ulcer of left heel and midfoot with fat layer exposed | CPT/HCPCS: 11042 ==

== ENCOUNTER 2019-12-20 13:00 | Outpatient (CLI) | payer MEDICARE, MEDICAID, SELFPAY | END 2019-12-20 13:01 | disposition home or self-care (01) | LOC: WOUND 13:01 | PROVIDERS: PCP Family Medicine; Visit Provider Surgery | DX: E11.621 Type 2 diabetes mellitus with foot ulcer (principal); L97.422 Non-pressure chronic ulcer of left heel and midfoot with fat layer exposed | CPT/HCPCS: 11042 ==

== ENCOUNTER 2019-12-27 10:14 | Outpatient (CLI) | payer MEDICARE, MEDICAID, SELFPAY | END 2019-12-27 10:15 | disposition home or self-care (01) | LOC: WOUND 10:16 | PROVIDERS: PCP Family Medicine; Visit Provider Surgery | DX: E11.621 Type 2 diabetes mellitus with foot ulcer (principal); L97.422 Non-pressure chronic ulcer of left heel and midfoot with fat layer exposed | CPT/HCPCS: 11042 ==

== ENCOUNTER 2020-01-03 09:39 | Outpatient (CLI) | payer MEDICARE, MEDICAID, SELFPAY | END 2020-01-03 09:40 | disposition home or self-care (01) | LOC: WOUND 09:40 | PROVIDERS: PCP Family Medicine; Visit Provider Surgery | DX: E11.621 Type 2 diabetes mellitus with foot ulcer (principal); L97.422 Non-pressure chronic ulcer of left heel and midfoot with fat layer exposed | CPT/HCPCS: 11042 ==

== ENCOUNTER 2020-01-10 09:05 | Outpatient (CLI) | payer MEDICARE, MEDICAID, SELFPAY | END 2020-01-10 09:06 | disposition home or self-care (01) | LOC: WOUND 09:05 | PROVIDERS: PCP Family Medicine; Visit Provider Nurse Practitioner Family | DX: E11.621 Type 2 diabetes mellitus with foot ulcer (principal); L97.422 Non-pressure chronic ulcer of left heel and midfoot with fat layer exposed | CPT/HCPCS: 11042 ==

== ENCOUNTER 2020-01-17 09:15 | Outpatient (CLI) | payer MEDICARE, MEDICAID, SELFPAY ==
--- NOTE | 2020-01-17 12:04 | XR_ITS ---
WS: [id number] Left foot, 3 views, 01/17/2020 Clinical Data: NONHEALING ULCER Comparison: Left foot, 08/06/2019. Findings: The soft tissue ulceration on the plantar surface of the foot communicating with the posterior calcan eus has enlarged. The opening is now 18 mm. However no bone erosion or destruction is seen. There is no evidence of osteomyelitis. There are no fractures or dislocations. There are calcifications of the overton of small vessels which is seen with diabetes. XR/XR foot LT min 3V* [id number] Impression: 1. Enlargement of soft tissue ulceration on plantar surface of the heel. 2. No evidence of osteomyelitis.
[2020-01-17 12:47] LABS: Basophils # 0.1 10^3/uL (0.0-0.1); Basophils % 0.7 %; Eosinophils # 0.4 10^3/uL (0.0-0.8); Eosinophils % 5.1 %; Hematocrit 39.9 % (42.0-52.0); Hemoglobin 12.1 g/dL (11.7-16.6); Lymphocytes # 1.2 10^3/uL (0.8-4.8); Mean Corpuscular HGB Conc 30.3 g/dL (30.0-36.0); Mean Corpuscular Volume 89.1 fL (80-94); Mean Platelet Volume 10.3 fL (7.4-10.4); Monocytes # 0.8 10^3/uL (0.2-0.9); Monocytes % 11.8 %; Neutrophils # 4.55 10^3/uL (1.8-7.7); Neutrophils % 64.7 %; Nucleated Red Blood Cells % 0 %; Platelet Count 245 10^3/cmm (130-400); Red Blood Count 4.48 10^6/uL (4.1-5.3); Red Cell Distribution Width 12.4 % (12.1-15.1)
[2020-01-17 12:59] LABS: INR 0.88 (0.8-1.2)
[2020-01-17 13:00] LABS: Partial Thromboplastin Time 32.5 SECONDS (23.9-36.7)
[2020-01-17 13:08] LABS: Alanine Aminotransferase 14 U/L (0-41); Alkaline Phosphatase 94 IU/L (40-130); Anion Gap 12.1 (5-19); Aspartate Amino Transferase 19 U/L (0-40); Blood Urea Nitrogen 17 mg/dL (8-23); Carbon Dioxide 29 mmol/L (22-29); Chloride 98 mmol/L (98-107); Globulin 2.9 g/dL (1.3-4.6); Glucose 91 mg/dL (65-115); Osmolality Calculated 281 mOsm/kg (285-295); Potassium 4.1 mmol/L (3.5-5.1); Sodium 135 mmol/L (136-145); Total Bilirubin 0.2 mg/dL (0.15-1.2); Total Protein 6.9 g/dL (6.6-8.7)
== END 2020-01-17 09:16 | disposition home or self-care (01) ==
LOC: WOUND 09:16
PROVIDERS: PCP Family Medicine; Visit Provider Surgery
DX: E11.621 Type 2 diabetes mellitus with foot ulcer (principal); L97.422 Non-pressure chronic ulcer of left heel and midfoot with fat layer exposed
CPT/HCPCS: 11042; 73630; 80053; 85025; 85610; 85730; 87635

== ENCOUNTER 2020-01-21 12:51 | Day surgery (SDC) | payer MEDICARE, MEDICAID, SELFPAY ==
[2020-01-20 09:33] VITALS: BMI 27.4
--- NOTE | 2020-01-20 09:55 | ANES.PREANE2 ---
Pre-Anesthetic Assessment Pre-Anesthetic Assessment: Height/Weight: Height 1.6 m Weight 70.307 kg Preop Diagnosis: Left diabetic foot wounds Proposed Procedure: Operation Date: 01/21/20 14:15 Proposed Procedures p Debridement of left foot wounds(Left) - Shayan Milner MD Familial anesthetic complications: None Social: Social History: No alcohol and No tobacco Exam: Pre-Anes Outpt Exam: alert, oriented x 3, clear to auscultation bilaterally and regular rate & rhythm Airway: Cervical ROM: WNL MP: 3 Dentition: Other (edentulous) CV/HEM: CV/HEM: CHF and HTN : : Chronic renal Insufficiency GI: GI: GERD Metabolic: Metabolic: DM Musc/skel: Comments: b/l foot infections - in wheelchair (4-5 months) before that he used walker Anesthetic Plan: ASA status: 3 Anesthesia: General Risk of > 500 ml blood loss (7ml/kg in children): No PFSH Anesthesia PFSH: Medical History BPH (benign prostatic hyperplasia) Congestive heart failure Diabetes mellitus with diabetic neuropathy, without long-term current use of insulin Diabetic foot ulcer GERD (gastroesophageal reflux disease) Hypertension PAD (peripheral artery disease) S/P angiogram of extremity Unspecified intellectual disabilities Surgical History S/P TURP (transurethral resection of prostate) Social History Smoking and tobacco status: never smoked Second hand smoke exposure: No Smoking risk assessment/counseling performed?: No Alcohol intake: never Desire information about alcohol rehabilitation?: No Counseling given: No Desire information about substance/drug rehabilitation?: No Counseling given: No Current occupational status: disabled Current gender identity: Male Data Anesthesia Cardiac Studies: No Data to Display
[2020-01-21 13:22] VITALS: BP 152/97; PULSE 70; RESP 18; TEMP 36.6; O2SAT 99
[2020-01-21] MEDS: sodium chloride 0.9% 1,000 ML 30 ML IV (13:37)
[2020-01-21 13:40] LABS: Glucose Point of Care 122 mg/dL (70-110)
[2020-01-21] MEDS: vancomycin 1,000 MG in sodium chloride 0.9% 250 ML 250 MG IV (14:48)
--- NOTE | 2020-01-21 14:58 | P.ANESUD_ITS ---
Pre-Anesthetic Update Pre-Anesthetic Assessment: Date of Surgery/Procedure: 01/21/20 Preop Sarahi gnosis: Left diabetic foot wounds Proposed Procedure: Operation Date: 01/21/20 14:30 Proposed Procedures p Debridement of left foot wounds(Left) - Shayan Milner MD Any changes to Pre-Anesthetic Assessment?: No Last Intake: Intake Last Liquid Date 01/21/20 Last Liquid Time 08:00 Last Solid Date 01/20/20 Last Solid Time 22:00 Labs Last 48hrs: Laboratory Results - last 48 hr 01/21/20 13:28 POC Glucose 122 Vitals: Temperature 97.8 F 01/21/20 13:22 Temperature Source Temporal Artery S can 01/21/20 13:22 Pulse Rate 70 01/21/20 13:22 Pulse Rhythm 01/21/20 13:01 Respiratory Rate 18 01/21/20 13:22 Blood Pressure 152/97 01/21/20 13:22 Blood Pressure Lianne n 115 01/21/20 13:22 Pulse Oximetry 99 01/21/20 13:22 Oxygen Delivery Me thod 01/21/20 13:22 Exam: Pre-Anes Outpt Exam: alert, oriented x 3, clear to auscultation bilaterally and regular rate & rhythm Other Pertinent Information: Other Pertinent Information: MAC Cardiac Studies: No Data to Display
--- NOTE | 2020-01-21 15:11 | W.PM.OPSUD ---
Surgery/Procedure H&P Update DATE OF PROCEDURE: January 21, 2020 DATE H&P PERFORMED: 01/10/20 H&P UPDATE INFORMATION: I have reviewed H&P completed within last 30 days, I have examined patient prior to procedure and No changes to prior documentation PREOP DIAGNOSIS: Left diabetic foot wounds PRIMARY INDICATION FOR PROCEDURE: The same PLANNED PROCEDURE: Operation Date: 01/21/20 14:30 Proposed Procedures p Debridement of left foot wounds(Left) - Shayan Milner MD
--- NOTE | 2020-01-21 16:00 | P.OP_ITS ---
Operative Report Date of procedure: January 21, 2020 Pre-op Diagnosis: Left diabetic foot wounds Post-op diagnosis: other (Fibrosed track between the left medial malleolus wound and left heel wound) Procedure Done: Sharp debridement of left heel wounds Pre-debridement measurement left medial malleolus wound 0.5 x 0.3 x 0.2 cm Pre-debridement measurements of left heel wound 0.6 x 0.7 x 0.2 cm Post debridement measurements as the sinus tract was opened as 5 x 1.4 x 1[address] to the musculofascial layer.Without bone exposure. Implants: Large piece of Surgicel followed by packing by 2 inches Nu Gauze. Specimens removed/disposition: Tissues for cultures and sensitivities and tissues for permanent from the wound edge Surgeon: Shayan Milner Ordering Machine Operator: Surgical asher Bhardwaj and medical student Sirisha Elizalde Anesthesia: MAC (Ruth Gutierrez) Estimated blood loss (mL): 5 Condition: stable Disposition: same day Brief History: This is a pleasant 74 years old gentleman with type 2 diabetes well-known to me from the wound care center with a chronic left heel wound. Patient over the course of months showed refractory to healing in spite of different measures. I did residential substance abuse counselor the family and the patient for surgical debridement in the OR. And he did agree to proceed accordingly. Informed consent per chart Procedure: After identifying the patient holding area, the left lower extremity was marked before the procedure by myself, patient was then taken to the operative suite, was placed in supine position, IV antibiotics were given per protocol,IV propofol was infused by the anesthesia provider, prep and drape of the wound region was done under the usual sterile technique. Time-out was done verifying the patient's name/date of /planned procedure and destination after the procedure, all were in agreement. Started by excising the unhealthy necrotic indurated tissues of the wound.Probing the wound revealing a fibrosed tract between the 2 wounds incision was created at the skin level and went all the way down to the subcutaneous tissues and musculofascial layer,wound was excised including unhealthy tissues followed by curettage and sharp debridment. Debridement of left heel wounds Pre-debridement measurement left medial malleolus wound 0.5 x 0.3 x 0.2 cm Pre-debridement measurements of left heel wound 0.6 x 0.7 x 0.2 cm Post debridement measurements as the sinus tract was opened as 5 x 1.4 x 1.[address] to the musculofascial layer. Without bone exposure. Issues were obtained for cultures and for permanent pathology Copious irrigation of the wound was done with warm saline, followed by appropriate hemostasis, packing of the wound was done with Surgicel followed by 2 inch Nu Gauze impregnated and lidocaine 2%, followed by piece of ABDs, Kerlix and Sonu wraps. Patient tolerated the procedure well, count of instruments needles and sponges were completed at the end of the procedure. Patient was then taken to the recovery area in stable condition. I was present for the whole entire procedure
[2020-01-21 16:06] VITALS: BP 89/54; PULSE 76; RESP 18; TEMP 36.9; O2SAT 100
[2020-01-21] MEDS: lidocaine 2% INJ 20 mL INJECTION (16:20)
[2020-01-21 16:33] VITALS: BP 113/80; PULSE 76; RESP 18; O2SAT 100
--- NOTE | 2020-01-21 16:35 | ANE.PACU2 ---
Inpatient post-anesthesia follow up: Airway intact: Yes Vital signs: Temperature 98.4 F Pulse Rate 76 Respiratory Rate 18 Blood Pressure 113/80 Pulse Oximetry 100 Oxygen Delivery Me thod Room Air Oxygen Flow Rate 5 Fraction of Inspir ed Oxygen Hydration adequate: Yes Nausea and vomiting: No Pain level: 1 Mental status: Baseline
== END 2020-01-21 17:05 | disposition home or self-care (01) ==
PROVIDERS: PCP Family Medicine; Visit Provider Surgery
PROC: (CPT 11043; principal; 2020-01-21 14:00)
DX: E11.621 Type 2 diabetes mellitus with foot ulcer (principal); S91.302A Unspecified open wound, left foot, initial encounter; X58.XXXA Exposure to other specified factors, initial encounter; I11.0 Hypertensive heart disease with heart failure; I50.9 Heart failure, unspecified; K21.9 Gastro-esophageal reflux disease without esophagitis; N40.0 Benign prostatic hyperplasia without lower urinary tract symptoms; E11.40 Type 2 diabetes mellitus with diabetic neuropathy, unspecified
CPT/HCPCS: 11043; 12345; 36416; 82962; 87070; 87075; 87077; 87176; 87186; 87205; 88304; 96365; J0131; J2250; J2704; J3370; J7030; J7050

== ENCOUNTER 2020-01-24 09:38 | Outpatient (CLI) | payer MEDICARE, MEDICAID, SELFPAY | END 2020-01-24 09:39 | disposition home or self-care (01) | LOC: WOUND 09:41 | PROVIDERS: PCP Family Medicine; Visit Provider Surgery | DX: E11.621 Type 2 diabetes mellitus with foot ulcer (principal); L97.525 Non-pressure chronic ulcer of other part of left foot with muscle involvement without evidence of necrosis | CPT/HCPCS: 11043; L3260 ==

== ENCOUNTER 2020-01-28 10:46 | Outpatient (CLI) | payer MEDICARE, MEDICAID, SELFPAY | END 2020-01-28 10:47 | disposition home or self-care (01) | LOC: WOUND 10:47 | PROVIDERS: PCP Family Medicine; Visit Provider Thoracic Surgery (Cardiothoracic Vascular Surgery) | DX: E11.621 Type 2 diabetes mellitus with foot ulcer (principal); L97.522 Non-pressure chronic ulcer of other part of left foot with fat layer exposed | CPT/HCPCS: 97605 ==

== ENCOUNTER 2020-01-31 09:55 | Outpatient (CLI) | payer MEDICARE, MEDICAID, SELFPAY | END 2020-01-31 09:56 | disposition home or self-care (01) | LOC: WOUND 09:56 | PROVIDERS: PCP Family Medicine; Visit Provider Surgery | DX: E11.621 Type 2 diabetes mellitus with foot ulcer (principal); L97.522 Non-pressure chronic ulcer of other part of left foot with fat layer exposed | CPT/HCPCS: 97605 ==

== ENCOUNTER → 2020-02-03 11:25 | Outpatient (BNVA) | payer MEDICARE, MEDICAID, SELFPAY | PROVIDERS: PCP Family Medicine; Visit Provider Family Medicine | DX: E11.621 Type 2 diabetes mellitus with foot ulcer (principal); E11.40 Type 2 diabetes mellitus with diabetic neuropathy, unspecified; I50.32 Chronic diastolic (congestive) heart failure; K21.9 Gastro-esophageal reflux disease without esophagitis; I10 Essential (primary) hypertension; L97.526 Non-pressure chronic ulcer of other part of left foot with bone involvement without evidence of necrosis; N40.1 Benign prostatic hyperplasia with lower urinary tract symptoms | CPT/HCPCS: 80048; 83036; 85025 ==

== ENCOUNTER 2020-02-07 10:08 | Outpatient (CLI) | payer MEDICARE, MEDICAID, SELFPAY | END 2020-02-07 10:09 | disposition home or self-care (01) | LOC: WOUND 10:09 | PROVIDERS: PCP Family Medicine; Visit Provider Surgery | DX: E11.621 Type 2 diabetes mellitus with foot ulcer (principal); L97.522 Non-pressure chronic ulcer of other part of left foot with fat layer exposed | CPT/HCPCS: 11042; 97605 ==

== ENCOUNTER 2020-02-14 10:10 | Outpatient (CLI) | payer MEDICARE, MEDICAID, SELFPAY | END 2020-02-14 10:11 | disposition home or self-care (01) | LOC: WOUND 10:11 | PROVIDERS: PCP Family Medicine; Visit Provider Surgery | DX: E11.621 Type 2 diabetes mellitus with foot ulcer (principal); L97.522 Non-pressure chronic ulcer of other part of left foot with fat layer exposed | CPT/HCPCS: 11042; 97605 ==

== ENCOUNTER 2020-02-21 10:29 | Outpatient (CLI) | payer MEDICARE, MEDICAID, SELFPAY | END 2020-02-21 10:30 | disposition home or self-care (01) | LOC: WOUND 10:31 | PROVIDERS: PCP Family Medicine; Visit Provider Surgery | DX: E11.621 Type 2 diabetes mellitus with foot ulcer (principal); L97.522 Non-pressure chronic ulcer of other part of left foot with fat layer exposed | CPT/HCPCS: 11042; 97605 ==

== ENCOUNTER 2020-02-28 10:36 | Outpatient (CLI) | payer MEDICARE, MEDICAID, SELFPAY | END 2020-02-28 10:37 | disposition home or self-care (01) | LOC: WOUND 10:36 | PROVIDERS: PCP Family Medicine; Visit Provider Nurse Practitioner Family | DX: E11.621 Type 2 diabetes mellitus with foot ulcer (principal); L97.522 Non-pressure chronic ulcer of other part of left foot with fat layer exposed | CPT/HCPCS: 11042; 97605 ==

== ENCOUNTER 2020-03-06 09:31 | Outpatient (CLI) | payer MEDICARE, MEDICAID, SELFPAY | END 2020-03-06 09:32 | disposition home or self-care (01) | LOC: WOUND 09:32 | PROVIDERS: PCP Family Medicine; Visit Provider Surgery | DX: E11.621 Type 2 diabetes mellitus with foot ulcer (principal); L97.522 Non-pressure chronic ulcer of other part of left foot with fat layer exposed | CPT/HCPCS: 11042; 97605 ==

== ENCOUNTER 2020-03-13 11:21 | Outpatient (CLI) | payer MEDICARE, MEDICAID, SELFPAY | END 2020-03-13 11:22 | disposition home or self-care (01) | LOC: WOUND 11:24 | PROVIDERS: PCP Family Medicine; Visit Provider Surgery | DX: E11.621 Type 2 diabetes mellitus with foot ulcer (principal); L97.522 Non-pressure chronic ulcer of other part of left foot with fat layer exposed; I96 Gangrene, not elsewhere classified | CPT/HCPCS: 11042 ==

== ENCOUNTER 2020-03-27 10:28 | Outpatient (CLI) | payer MEDICARE, MEDICAID, SELFPAY | END 2020-03-27 10:29 | disposition home or self-care (01) | LOC: WOUND 10:29 | PROVIDERS: PCP Family Medicine; Visit Provider Surgery | DX: E11.621 Type 2 diabetes mellitus with foot ulcer (principal); L97.522 Non-pressure chronic ulcer of other part of left foot with fat layer exposed | CPT/HCPCS: 11042 ==

== ENCOUNTER 2020-04-03 10:37 | Outpatient (CLI) | payer MEDICARE, MEDICAID, SELFPAY | END 2020-04-03 10:38 | disposition home or self-care (01) | LOC: WOUND 10:38 | PROVIDERS: PCP Family Medicine; Visit Provider Surgery | DX: E11.621 Type 2 diabetes mellitus with foot ulcer (principal); L97.522 Non-pressure chronic ulcer of other part of left foot with fat layer exposed | CPT/HCPCS: 97597 ==

== ENCOUNTER 2020-04-10 11:01 | Outpatient (CLI) | payer MEDICARE, MEDICAID, SELFPAY | END 2020-04-10 11:02 | disposition home or self-care (01) | LOC: WOUND 11:03 | PROVIDERS: PCP Family Medicine; Visit Provider Surgery | DX: E11.621 Type 2 diabetes mellitus with foot ulcer (principal); L97.522 Non-pressure chronic ulcer of other part of left foot with fat layer exposed | CPT/HCPCS: 11042 ==

== ENCOUNTER 2020-05-01 10:13 | Outpatient (CLI) | payer MEDICARE, MEDICAID, SELFPAY | END 2020-05-01 10:14 | disposition home or self-care (01) | LOC: WOUND 10:14 | PROVIDERS: PCP Family Medicine; Visit Provider Surgery | DX: E11.621 Type 2 diabetes mellitus with foot ulcer (principal); L97.522 Non-pressure chronic ulcer of other part of left foot with fat layer exposed | CPT/HCPCS: 11042 ==

== ENCOUNTER → 2020-05-12 10:53 | Outpatient (BNVA) | payer MEDICARE, MEDICAID, SELFPAY | PROVIDERS: PCP Family Medicine; Visit Provider Family Medicine | DX: E11.40 Type 2 diabetes mellitus with diabetic neuropathy, unspecified (principal); K21.9 Gastro-esophageal reflux disease without esophagitis; I50.32 Chronic diastolic (congestive) heart failure; E11.621 Type 2 diabetes mellitus with foot ulcer; L97.526 Non-pressure chronic ulcer of other part of left foot with bone involvement without evidence of necrosis; N40.1 Benign prostatic hyperplasia with lower urinary tract symptoms; N39.43 Post-void dribbling; Z74.09 Other reduced mobility; Z78.9 Other specified health status; I11.0 Hypertensive heart disease with heart failure | CPT/HCPCS: 80048; 83036 ==

== ENCOUNTER 2020-05-15 09:37 | Outpatient (CLI) | payer MEDICARE, MEDICAID, SELFPAY | END 2020-05-15 09:38 | disposition home or self-care (01) | LOC: WOUND 09:42 | PROVIDERS: PCP Family Medicine; Visit Provider Surgery | DX: E11.621 Type 2 diabetes mellitus with foot ulcer (principal); L97.522 Non-pressure chronic ulcer of other part of left foot with fat layer exposed; I96 Gangrene, not elsewhere classified; M14.672 Charcot's joint, left ankle and foot | CPT/HCPCS: 11042 ==

== ENCOUNTER 2020-05-22 10:12 | Outpatient (CLI) | payer MEDICARE, MEDICAID, SELFPAY | END 2020-05-22 10:13 | disposition home or self-care (01) | LOC: WOUND 10:13 | PROVIDERS: PCP Family Medicine; Visit Provider Surgery | DX: E11.621 Type 2 diabetes mellitus with foot ulcer (principal); L97.522 Non-pressure chronic ulcer of other part of left foot with fat layer exposed | CPT/HCPCS: 11042 ==

== ENCOUNTER 2020-05-29 09:31 | Outpatient (CLI) | payer MEDICARE, MEDICAID, SELFPAY | END 2020-05-29 09:32 | disposition home or self-care (01) | LOC: WOUND 09:33 | PROVIDERS: PCP Family Medicine; Visit Provider Surgery | DX: E11.621 Type 2 diabetes mellitus with foot ulcer (principal); L97.522 Non-pressure chronic ulcer of other part of left foot with fat layer exposed | CPT/HCPCS: 11042 ==

== ENCOUNTER 2020-06-19 09:48 | Outpatient (CLI) | payer MEDICARE, MEDICAID, SELFPAY | END 2020-06-19 09:49 | disposition home or self-care (01) | LOC: WOUND 09:48 | PROVIDERS: PCP Family Medicine; Visit Provider Surgery | DX: E11.621 Type 2 diabetes mellitus with foot ulcer (principal); L97.522 Non-pressure chronic ulcer of other part of left foot with fat layer exposed | CPT/HCPCS: 11042 ==

== ENCOUNTER 2020-06-26 09:27 | Outpatient (CLI) | payer MEDICARE, MEDICAID, SELFPAY | END 2020-06-26 09:28 | disposition home or self-care (01) | LOC: WOUND 09:28 | PROVIDERS: PCP Family Medicine; Visit Provider Surgery | DX: E11.621 Type 2 diabetes mellitus with foot ulcer (principal); L97.522 Non-pressure chronic ulcer of other part of left foot with fat layer exposed | CPT/HCPCS: 11042 ==

== ENCOUNTER 2020-07-10 09:45 | Outpatient (CLI) | payer MEDICARE, MEDICAID, SELFPAY | END 2020-07-10 09:46 | disposition home or self-care (01) | LOC: WOUND 09:46 | PROVIDERS: PCP Family Medicine; Visit Provider Nurse Practitioner Family | DX: E11.621 Type 2 diabetes mellitus with foot ulcer (principal); L97.522 Non-pressure chronic ulcer of other part of left foot with fat layer exposed | CPT/HCPCS: 11042 ==

== ENCOUNTER 2020-07-17 10:08 | Outpatient (CLI) | payer MEDICARE, MEDICAID, SELFPAY | END 2020-07-17 10:09 | disposition home or self-care (01) | LOC: WOUND 10:09 | PROVIDERS: PCP Family Medicine; Visit Provider Surgery | DX: E11.621 Type 2 diabetes mellitus with foot ulcer (principal); L97.522 Non-pressure chronic ulcer of other part of left foot with fat layer exposed | CPT/HCPCS: 11042 ==

== ENCOUNTER 2020-07-24 09:42 | Outpatient (CLI) | payer MEDICARE, MEDICAID, SELFPAY | END 2020-07-24 09:43 | disposition home or self-care (01) | LOC: WOUND 09:43 | PROVIDERS: PCP Family Medicine; Visit Provider Surgery | DX: E11.621 Type 2 diabetes mellitus with foot ulcer (principal); L97.522 Non-pressure chronic ulcer of other part of left foot with fat layer exposed | CPT/HCPCS: 11042 ==

== ENCOUNTER 2020-07-31 09:09 | Outpatient (CLI) | payer MEDICARE, MEDICAID, SELFPAY | END 2020-07-31 09:10 | disposition home or self-care (01) | LOC: WOUND 09:11 | PROVIDERS: PCP Family Medicine; Visit Provider Surgery | DX: E11.621 Type 2 diabetes mellitus with foot ulcer (principal); L97.522 Non-pressure chronic ulcer of other part of left foot with fat layer exposed | CPT/HCPCS: 11042 ==

== ENCOUNTER 2020-08-07 09:13 | Outpatient (CLI) | payer MEDICARE, MEDICAID, SELFPAY | END 2020-08-07 09:14 | disposition home or self-care (01) | LOC: WOUND 09:14 | PROVIDERS: PCP Family Medicine; Visit Provider Surgery | DX: E11.621 Type 2 diabetes mellitus with foot ulcer (principal); L97.522 Non-pressure chronic ulcer of other part of left foot with fat layer exposed | CPT/HCPCS: 11042 ==

== ENCOUNTER 2020-08-14 09:06 | Outpatient (CLI) | payer MEDICARE, MEDICAID, SELFPAY | END 2020-08-14 09:07 | disposition home or self-care (01) | LOC: WOUND 09:07 | PROVIDERS: PCP Family Medicine; Visit Provider Surgery | DX: E11.621 Type 2 diabetes mellitus with foot ulcer (principal); L97.522 Non-pressure chronic ulcer of other part of left foot with fat layer exposed | CPT/HCPCS: 11042 ==

== ENCOUNTER 2020-08-21 09:00 | Outpatient (CLI) | payer MEDICARE, MEDICAID, SELFPAY | END 2020-08-21 09:01 | disposition home or self-care (01) | LOC: WOUND 09:02 | PROVIDERS: PCP Family Medicine; Visit Provider Nurse Practitioner Family | DX: E11.621 Type 2 diabetes mellitus with foot ulcer (principal); L97.522 Non-pressure chronic ulcer of other part of left foot with fat layer exposed | CPT/HCPCS: 11042 ==

== ENCOUNTER 2020-09-04 09:35 | Outpatient (CLI) | payer MEDICARE, MEDICAID, SELFPAY | END 2020-09-04 09:36 | disposition home or self-care (01) | LOC: WOUND 09:38 | PROVIDERS: PCP Family Medicine; Visit Provider Nurse Practitioner Family | DX: E11.621 Type 2 diabetes mellitus with foot ulcer (principal); L97.521 Non-pressure chronic ulcer of other part of left foot limited to breakdown of skin | CPT/HCPCS: 11042 ==

== ENCOUNTER 2020-09-18 09:24 | Outpatient (CLI) | payer MEDICARE, MEDICAID, SELFPAY | END 2020-09-18 09:25 | disposition home or self-care (01) | LOC: WOUND 09:25 | PROVIDERS: PCP Family Medicine; Visit Provider Surgery | DX: E11.621 Type 2 diabetes mellitus with foot ulcer (principal); L97.522 Non-pressure chronic ulcer of other part of left foot with fat layer exposed | CPT/HCPCS: 11042 ==

== ENCOUNTER 2020-09-25 09:17 | Outpatient (CLI) | payer MEDICARE, MEDICAID, SELFPAY | END 2020-09-25 09:18 | disposition home or self-care (01) | LOC: WOUND 09:20 | PROVIDERS: PCP Family Medicine; Visit Provider Surgery | DX: E11.621 Type 2 diabetes mellitus with foot ulcer (principal); L97.522 Non-pressure chronic ulcer of other part of left foot with fat layer exposed | CPT/HCPCS: 11042 ==

== ENCOUNTER 2020-10-02 09:10 | Outpatient (CLI) | payer MEDICARE, MEDICAID, SELFPAY | END 2020-10-02 09:11 | disposition home or self-care (01) | LOC: WOUND 09:11 | PROVIDERS: PCP Family Medicine; Visit Provider Nurse Practitioner Family | DX: E11.621 Type 2 diabetes mellitus with foot ulcer (principal); L97.522 Non-pressure chronic ulcer of other part of left foot with fat layer exposed | CPT/HCPCS: 11042 ==

== ENCOUNTER 2020-10-16 10:22 | Outpatient (CLI) | payer MEDICARE, MEDICAID, SELFPAY | END 2020-10-16 10:23 | disposition home or self-care (01) | LOC: WOUND 10:23 | PROVIDERS: PCP Family Medicine; Visit Provider Surgery | DX: E11.621 Type 2 diabetes mellitus with foot ulcer (principal); L97.522 Non-pressure chronic ulcer of other part of left foot with fat layer exposed | CPT/HCPCS: 11042 ==

== ENCOUNTER 2020-10-23 09:46 | Outpatient (CLI) | payer MEDICARE, MEDICAID, SELFPAY | END 2020-10-23 09:47 | disposition home or self-care (01) | LOC: WOUND 09:47 | PROVIDERS: PCP Family Medicine; Visit Provider Nurse Practitioner Family | DX: E11.621 Type 2 diabetes mellitus with foot ulcer (principal); L97.521 Non-pressure chronic ulcer of other part of left foot limited to breakdown of skin | CPT/HCPCS: 11042 ==

== ENCOUNTER → 2020-10-29 11:10 | Outpatient (BNVA) | payer MEDICARE, MEDICAID, SELFPAY | PROVIDERS: PCP Family Medicine; Visit Provider Family Medicine | DX: E11.40 Type 2 diabetes mellitus with diabetic neuropathy, unspecified (principal); I10 Essential (primary) hypertension; B37.2 Candidiasis of skin and nail; K21.9 Gastro-esophageal reflux disease without esophagitis; I50.32 Chronic diastolic (congestive) heart failure; I50.9 Heart failure, unspecified | CPT/HCPCS: 80053; 80061; 83036 ==

== ENCOUNTER 2020-10-30 09:49 | Outpatient (CLI) | payer MEDICARE, MEDICAID, SELFPAY | END 2020-10-30 09:50 | disposition home or self-care (01) | LOC: WOUND 09:53 | PROVIDERS: PCP Family Medicine; Visit Provider Thoracic Surgery (Cardiothoracic Vascular Surgery) | DX: E11.621 Type 2 diabetes mellitus with foot ulcer (principal); L97.522 Non-pressure chronic ulcer of other part of left foot with fat layer exposed | CPT/HCPCS: 97597 ==

== ENCOUNTER → 2020-11-16 10:57 | Outpatient (BNVA) | payer MEDICARE, MEDICAID, SELFPAY | PROVIDERS: PCP Family Medicine; Visit Provider Nurse Practitioner Family | DX: R69 Illness, unspecified (principal); R19.7 Diarrhea, unspecified; Z20.822 Contact with and (suspected) exposure to COVID-19 | CPT/HCPCS: 87635 ==

== ENCOUNTER 2020-11-20 10:32 | Outpatient (CLI) | payer MEDICARE, MEDICAID, SELFPAY | END 2020-11-20 10:33 | disposition home or self-care (01) | LOC: WOUND 10:35 | PROVIDERS: PCP Family Medicine; Visit Provider Surgery | DX: E11.621 Type 2 diabetes mellitus with foot ulcer (principal); L97.521 Non-pressure chronic ulcer of other part of left foot limited to breakdown of skin | CPT/HCPCS: 97597 ==

== ENCOUNTER → 2021-04-27 00:01 | Outpatient (BNVA) | payer MEDICARE, MEDICAID, SELFPAY | PROVIDERS: PCP Family Medicine; Visit Provider Family Medicine | DX: E11.40 Type 2 diabetes mellitus with diabetic neuropathy, unspecified (principal); I10 Essential (primary) hypertension; K21.9 Gastro-esophageal reflux disease without esophagitis | CPT/HCPCS: 80053; 83036 ==

== ENCOUNTER 2021-06-01 14:22 | Outpatient (CLI) | payer MEDICARE, MEDICAID, SELFPAY | END 2021-06-01 14:23 | disposition home or self-care (01) | LOC: WOUND 14:24 | PROVIDERS: PCP Family Medicine; Visit Provider Emergency Medicine | DX: E11.621 Type 2 diabetes mellitus with foot ulcer (principal); L97.422 Non-pressure chronic ulcer of left heel and midfoot with fat layer exposed | CPT/HCPCS: 11042; 87070; 87077; 87176; 87186; 87205; 99213; A6219 ==

== ENCOUNTER 2021-06-14 13:17 | Outpatient (CLI) | payer MEDICARE, MEDICAID, SELFPAY ==
--- NOTE | 2021-06-14 13:29 | USCV_ITS ---
Macario Miller Age: 76 Gender: M : 1945 Exam Date: 06/14/2021 13:44 Ordering Phys: Mariam Vee DO Technologist: [place] [facility] [place]: [place]ORY: PROCEDURES: Left duplex Venous Insufficiency study of the Deep and Superficial systems was carried out according to normal protocol with the patient in supine positon for deep system and dependent position for the superficial system. FINDINGS: All deep veins demonstrated compressibility without evidence of intraluminal thrombus or increased echogenicity. Spectral analysis of Doppler signals demonstrates normal response to compression maneuvers indicating patency without obstruction. Reflux determinations were made with the patient in the dependent position, the weight being on the contralateral leg. Vein measurements and reflux times are listed below were applicable. No notable reflux was seen at this time. CONCLUSIONS No evidence of DVT in the above-mentioned identifiable veins. No significant venous reflux in the deep or superficial veins on the left side Dr Attila Javed MD [facility] (Electronically Signed) Final Date: 15 June 2021 08:56 S
== END 2021-06-14 13:18 | disposition home or self-care (01) ==
LOC: RAD 13:23
PROVIDERS: PCP Family Medicine; Visit Provider Emergency Medicine
DX: I87.2 Venous insufficiency (chronic) (peripheral) (principal)
CPT/HCPCS: 93971

== ENCOUNTER 2021-06-23 12:48 | Outpatient (CLI) | payer MEDICARE, MEDICAID, SELFPAY ==
--- NOTE | 2021-06-23 13:16 | USCV_ITS ---
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 Dr Attila Javed MD [facility] [place] (Electronically Signed) Final Date: 24 June 2021 17:40 S
== END 2021-06-23 12:49 | disposition home or self-care (01) ==
LOC: RAD 12:53
PROVIDERS: PCP Family Medicine; Visit Provider Emergency Medicine
DX: E11.621 Type 2 diabetes mellitus with foot ulcer (principal)
CPT/HCPCS: 93922

== ENCOUNTER 2021-06-24 09:47 | Outpatient (CLI) | payer MEDICARE, MEDICAID, SELFPAY | END 2021-06-24 09:48 | disposition home or self-care (01) | LOC: WOUND 09:48 | PROVIDERS: PCP Family Medicine; Visit Provider Emergency Medicine | DX: I96 Gangrene, not elsewhere classified (principal); E11.621 Type 2 diabetes mellitus with foot ulcer; L97.422 Non-pressure chronic ulcer of left heel and midfoot with fat layer exposed | CPT/HCPCS: 11042; 73630; 99212 ==

== ENCOUNTER 2021-06-24 11:56 | Outpatient (CLI) | payer MEDICARE, MEDICAID, SELFPAY ==
--- NOTE | 2021-06-24 13:00 | XR_ITS ---
WS: [id number] Left foot, 3 views, 06/24/2021 Clinical Data: DM2 W/ULCER Comparison: Left foot, 01/17/2020. Findings: No fractures or dislocations are seen. No bone destruction or erosion is noted. The joint spaces and soft tissues are normal. No evidence of osteomyelitis is seen. There are vascular calcifications and small vessels. XR/XR foot LT min 3V* [id number] Impression: Negative left foot.
== END 2021-06-24 11:57 | disposition home or self-care (01) ==
PROVIDERS: PCP Family Medicine; Visit Provider Emergency Medicine
DX: E11.621 Type 2 diabetes mellitus with foot ulcer (principal)
CPT/HCPCS: 73630

== ENCOUNTER 2021-07-01 09:43 | Outpatient (CLI) | payer MEDICARE, MEDICAID, SELFPAY | END 2021-07-01 09:44 | disposition home or self-care (01) | LOC: WOUND 09:44 | PROVIDERS: PCP Family Medicine; Visit Provider Nurse Practitioner Family | DX: E11.621 Type 2 diabetes mellitus with foot ulcer (principal); L97.422 Non-pressure chronic ulcer of left heel and midfoot with fat layer exposed | CPT/HCPCS: 11042; A6021; A6252 ==

== ENCOUNTER → 2021-07-15 08:51 | Outpatient (BNVA) | payer MEDICARE, MEDICAID, SELFPAY | PROVIDERS: PCP Family Medicine; Visit Provider Nurse Practitioner Family | DX: E11.621 Type 2 diabetes mellitus with foot ulcer (principal); L97.422 Non-pressure chronic ulcer of left heel and midfoot with fat layer exposed; I96 Gangrene, not elsewhere classified | CPT/HCPCS: 11042 ==

== ENCOUNTER → 2021-07-22 09:02 | Outpatient (BNVA) | payer MEDICARE, MEDICAID, SELFPAY | PROVIDERS: PCP Family Medicine; Visit Provider Nurse Practitioner Family | DX: E11.621 Type 2 diabetes mellitus with foot ulcer (principal); I96 Gangrene, not elsewhere classified; L97.422 Non-pressure chronic ulcer of left heel and midfoot with fat layer exposed | CPT/HCPCS: 11042 ==

== ENCOUNTER → 2021-07-27 11:22 | Outpatient (BNVA) | payer MEDICARE, MEDICAID, SELFPAY | PROVIDERS: PCP Family Medicine; Visit Provider Family Medicine | DX: E11.40 Type 2 diabetes mellitus with diabetic neuropathy, unspecified (principal); I10 Essential (primary) hypertension; N39.41 Urge incontinence; Z78.9 Other specified health status; Z74.09 Other reduced mobility | CPT/HCPCS: 80048; 83036 ==

== ENCOUNTER → 2021-07-29 10:00 | Outpatient (BNVA) | payer MEDICARE, MEDICAID, SELFPAY | PROVIDERS: PCP Family Medicine; Visit Provider Nurse Practitioner Family | DX: E11.621 Type 2 diabetes mellitus with foot ulcer (principal); L97.422 Non-pressure chronic ulcer of left heel and midfoot with fat layer exposed; I96 Gangrene, not elsewhere classified | CPT/HCPCS: 11042 ==

== ENCOUNTER → 2021-08-05 10:12 | Outpatient (BNVA) | payer MEDICARE, MEDICAID, SELFPAY | PROVIDERS: PCP Family Medicine; Visit Provider Nurse Practitioner Family | DX: E11.621 Type 2 diabetes mellitus with foot ulcer (principal); I96 Gangrene, not elsewhere classified; L97.522 Non-pressure chronic ulcer of other part of left foot with fat layer exposed | CPT/HCPCS: 15275; A6250; Q4187 ==

== ENCOUNTER → 2021-08-12 10:15 | Outpatient (BNVA) | payer MEDICARE, MEDICAID, SELFPAY | PROVIDERS: PCP Family Medicine; Visit Provider Nurse Practitioner Family | DX: E11.621 Type 2 diabetes mellitus with foot ulcer (principal); L97.422 Non-pressure chronic ulcer of left heel and midfoot with fat layer exposed; I96 Gangrene, not elsewhere classified | CPT/HCPCS: 15275; A6206; A6250; Q4187 ==

== ENCOUNTER → 2021-08-19 10:05 | Outpatient (BNVA) | payer MEDICARE, MEDICAID, SELFPAY | PROVIDERS: PCP Family Medicine; Visit Provider Nurse Practitioner Family | DX: E11.621 Type 2 diabetes mellitus with foot ulcer (principal); L97.422 Non-pressure chronic ulcer of left heel and midfoot with fat layer exposed; I96 Gangrene, not elsewhere classified | CPT/HCPCS: 15275; A6250; Q4187 ==

== ENCOUNTER → 2021-08-26 10:35 | Outpatient (BNVA) | payer MEDICARE, MEDICAID, SELFPAY | PROVIDERS: PCP Family Medicine; Visit Provider Nurse Practitioner Family | DX: E11.621 Type 2 diabetes mellitus with foot ulcer (principal); L97.422 Non-pressure chronic ulcer of left heel and midfoot with fat layer exposed; I96 Gangrene, not elsewhere classified | CPT/HCPCS: 11042; A6250 ==

== ENCOUNTER → 2021-09-02 10:10 | Outpatient (BNVA) | payer MEDICARE, MEDICAID, SELFPAY | PROVIDERS: PCP Family Medicine; Visit Provider Nurse Practitioner Family | DX: E11.621 Type 2 diabetes mellitus with foot ulcer (principal); L97.422 Non-pressure chronic ulcer of left heel and midfoot with fat layer exposed; I96 Gangrene, not elsewhere classified | CPT/HCPCS: 11042 ==

== ENCOUNTER → 2021-09-09 10:02 | Outpatient (BNVA) | payer MEDICARE, MEDICAID, SELFPAY | PROVIDERS: PCP Family Medicine; Visit Provider Nurse Practitioner Family | DX: E11.621 Type 2 diabetes mellitus with foot ulcer (principal); L97.422 Non-pressure chronic ulcer of left heel and midfoot with fat layer exposed; I96 Gangrene, not elsewhere classified | CPT/HCPCS: 11042 ==

== ENCOUNTER → 2021-09-16 10:13 | Outpatient (BNVA) | payer MEDICARE, MEDICAID, SELFPAY | PROVIDERS: PCP Family Medicine; Visit Provider Nurse Practitioner Family | DX: E11.621 Type 2 diabetes mellitus with foot ulcer (principal); L97.422 Non-pressure chronic ulcer of left heel and midfoot with fat layer exposed; I96 Gangrene, not elsewhere classified | CPT/HCPCS: 11042 ==

== ENCOUNTER → 2022-01-25 11:41 | Outpatient (BNVA) | payer MEDICARE, MEDICAID, SELFPAY | PROVIDERS: PCP Family Medicine; Visit Provider Family Medicine | DX: I10 Essential (primary) hypertension (principal); E11.40 Type 2 diabetes mellitus with diabetic neuropathy, unspecified; I50.32 Chronic diastolic (congestive) heart failure; K21.9 Gastro-esophageal reflux disease without esophagitis; I50.9 Heart failure, unspecified; E11.9 Type 2 diabetes mellitus without complications; Z23 Encounter for immunization | CPT/HCPCS: 80053; 80061; 83036 ==

== ENCOUNTER → 2022-06-22 10:46 | Outpatient (BNVA) | payer MEDICARE, MEDICAID, SELFPAY | PROVIDERS: PCP Family Medicine; Visit Provider Family Medicine | DX: I10 Essential (primary) hypertension (principal); E11.40 Type 2 diabetes mellitus with diabetic neuropathy, unspecified | CPT/HCPCS: 80053; 83036 ==

== ENCOUNTER 2022-08-15 01:09 | Emergency (ER) | payer MEDICARE, MEDICAID, SELFPAY ==
[2022-08-15 01:22] VITALS: BP 148/108; PULSE 83; RESP 16; TEMP 37.1; O2SAT 100; BMI 27.8
[2022-08-15 02:15] VITALS: BP 106/59; PULSE 77; RESP 18; O2SAT 96
--- NOTE | 2022-08-15 02:26 | XRR_ITS ---
PROCEDURE INFORMATION: Exam: XR Left Foot Exam date and time: 08/15/2022 2:50 AM Age: 77 years old Clinical indication: Other: Diabetic wounds TECHNIQUE: Imaging protocol: Radiologic exam of the left foot. Views: 3 or more views. COMPARISON: CT foot LT w con [id number] 11/15/2019 9:20 AM FINDINGS: Bones/joints: No acute fracture. No reactive bony changes. No dislocation. Soft tissues: Normal. XR/XR foot LT min 3V* [id number] IMPRESSION: No acute findings.
--- NOTE | 2022-08-15 02:26 | XRR_ITS ---
PROCEDURE INFORMATION: Exam: XR Right Foot Exam date and time: 08/15/2022 2:47 AM Age: 77 years old Clinical indication: Other: Diabetic wounds TECHNIQUE: Imaging protocol: Radiologic exam of the right foot. Views: 3 or more views. COMPARISON: MR foot RT wo/w con [id number] 07/24/2018 2:34 PM FINDINGS: Bones/joints: Prior postsurgical changes of the distal 5th metatarsal. No reactive bony changes. No acute fracture. Soft tissues: Mild edema overlying the 5th metatarsal region. XR/XR foot RT min 3V* [id number] IMPRESSION: Mild edema overlying the 5th metatarsal region. If there is clinical concern for osteomyelitis, MRI is more sensitive in evaluation.
--- NOTE | 2022-08-15 02:27 | USR_ITS ---
PROCEDURE INFORMATION: Exam: US Duplex Lower Extremity Arteries Exam date and time: 08/15/2022 2:59 AM Age: 77 years old Clinical indication: Other: Dm ulcers; Additional info: Diabetic foot wounds TECHNIQUE: Imaging protocol: Real-time ultrasound scan of the arteries of the bilateral lower extremities with 2-D guillen scale, color Doppler flow and spectral waveform analysis. Images documented and saved. COMPARISON: CT foot LT w con [id number] 11/15/2019 9:20 AM FINDINGS: Right external iliac artery: Distal right external iliac artery velocity 125 cm/s Right common femoral artery: No occlusion or significant stenosis. Normal waveform. Common femoral artery velocity 110 cm/s Right superficial femoral artery: No occlusion or significant stenosis. Normal waveform. Mid superficial femoral artery velocity 94 cm/s Right popliteal artery: No occlusion or significant stenosis. Biphasic waveform. Right popliteal artery velocity 178 cm/s Right calf/foot arteries: The right posterior tibial artery is occluded. The right dorsalis pedis artery is patent with a biphasic waveform. Right dorsalis pedis artery velocity 111 cm/s Left external iliac artery: Distal left external iliac artery velocity 135 cm/s Left common femoral artery: No occlusion or significant stenosis. Normal waveform. Left common femoral artery velocity 119 cm/s Left superficial femoral artery: No occlusion or significant stenosis. Normal waveform. Mid left superficial femoral artery velocity 83 cm/s Left popliteal artery: No occlusion or significant stenosis. Normal waveform. Left popliteal artery velocity 59 cm/s Left calf/foot arteries: The left posterior tibial artery is occluded. The left dorsalis pedis artery is patent with a monophasic waveform. Left dorsalis pedis artery velocity 31 cm/s US/CV arterial duplex [facility] [id number] IMPRESSION: 1. The right and left posterior tibial arteries are occluded. 2. Right ankle brachial index: 0.7 Compatible with moderate peripheral arterial disease. 3. Left ankle brachial index: 0.6 Compatible with moderate peripheral arterial disease.
--- NOTE | 2022-08-15 02:30 | W.ED.EXTPRO ---
HPI - Extremity Problem General: Chief complaint: Extremity Injury, Lower Stated complaint: Blister on Feet Time Seen by Provider: 08/15/22 01:31 Source: patient and family Mode of arrival: wheelchair Limitations: other (Patient has MR diagnosis-Per family) History of Present Illness: Patient presents to the emergency department today for evaluation treatment of concerns for infection to the bottom of his feet. Patient is a diabetic and has spent years in wound care for diabetic foot ulcers. They indicated patient got new diabetic shoes and suspect his shoes have been rubbing. Patient lives with his brother and [id number]. Brother had been helping the patient yesterday and indicated no findings of infection or concerns on the feet however, today, patient was walking around complaining of pain in his feet and holding onto railings in the wall while he was walking. They noticed that his socks were wet from using from blisters and, with his history of diabetes and foot wounds, brought him in for evaluation. They note patient has had to be hospitalized in the past for diabetic foot infections. Review of Systems General: Reports: 10 or more systems reviewed and unremarkable except in HPI and below PFSH ED PFSH: Medical History BPH (benign prostatic hyperplasia) Congestive heart failure Diabetes mellitus with diabetic neuropathy, without long-term current use of insulin Diabetic foot ulcer GERD (gastroesophageal reflux disease) Hypertension PAD (peripheral artery disease) S/P angiogram of extremity Unspecified intellectual disabilities Surgical History S/P TURP (transurethral resection of prostate) Social History Smoking and tobacco status: never smoked Second hand smoke exposure: No Smoking risk assessment/counseling performed?: No Alcohol intake: never Desire information about alcohol rehabilitation?: No Counseling given: No Substance/Drug Use: never Desire information about substance/drug rehabilitation?: No Counseling given: No Current occupational status: disabled Do you think of yourself as: Straight/Heterosexual Current gender identity: Male Physical Exam Const: COMMON NORMALS: no acute distress, patient oriented x3 and alert HENMT: COMMON NORMALS: normocephalic, atraumatic and hearing grossly normal bilaterally HEAD & SCALP: normocephalic and atraumatic Eye: COMMON NORMALS: Equal, round and reactive pupils present, EOMs intact bilaterally and conjunctivae normal CONJUNCTIVA: Yes conjunctivae normal PUPIL: Yes Equal, round and reactive pupils present Neck/C-Spine: COMMON NORMALS: full ROM and no JVD Lymph: LYMPHATIC: no lymphadenopathy noted Resp: COMMON NORMALS: normal respiratory effort, No retractions and No use of accessory muscles Cardio: COMMON NORMALS: no JVD and regular rate RATE: regular rate Extremity: NARRATIVE EXTREMITY EXAM: Patient has cracked and flaking skin to the feet bilaterally both on the plantar and dorsal aspect of the feet. Patient's toenails are thickened, shortened, and yellow. Patient has large areas of skin sloughing noted to the bottom of the feet with severely macerated skin. Bottoms of the feet and webspaces are moist. Patient has area of skin that is almost white or guillen due to the moisture. Patient also has areas of crusting on his feet-including in the webspaces. Patient also has some areas of vascular rash noted to the tips of the toes and the toe pads of the first, second, and third toes bilaterally. Feet are mild to moderately erythematous throughout on both the left and the right feet. Neuro: COMMON NORMALS: patient oriented x3 SENSORIUM/ORIENTATION: Yes alert Psych: COMMON NORMALS: mental status grossly normal, Normal thought process present, cooperative and normal affect THOUGHT PROCESS: Normal thought process present Skin: COMMON NORMALS: no rashes or lesions noted and turgor normal GENERAL SKIN EXAM: no rashes or lesions noted and turgor normal Course Vital Signs: Vital signs: Vital Signs Temperature 98.8 F 08/15/22 01:22 Pulse Rate 83 08/15/22 01:22 Respiratory Rate 16 08/15/22 01:22 Blood Pressure 148/108 08/15/22 01:22 Pulse Oximetry 100 08/15/22 01:22 Oxygen Delivery Me thod Room Air 08/15/22 01:22 MDM - Extremity (Nontraumatic) Medical Decision Making Patient presented to the emergency department today for concerns of diabetic foot wounds/blistering. Patient's examination is more significant than the 24 hours of blistering originally described in triage. Due to the extent, I did get a second opinion by Dr. Hill who indicated we needed to gather some basic labs, inflammatory markers, start some antibiotics and, get imaging of both the bony structure of the feet as well as the arterial blood flow in the lower extremities. Indicated patient will most likely be returning back to wound care but, will obtain a work-up while here in the emergency department. Patient was started on IV doxycycline during this time. Discharge Plan Discharge Condition: Stable Prescriptions: No Action aspirin [Adult Aspirin Regimen] 81 mg tablet,delayed release (DR/EC) 81 mg PO DAILY Hold Instructions: Resume on 01/24/20. nystatin 100,000 unit/gram ointment 1 applic topical .at bedtime 14 Days Qty: 30 1RF vitamin B complex [B Complex-Vitamin B12] Tablet 1 tab PO DAILY zinc 50 mg tablet See Rx Instructions .ROUTE .COMPLEX Rx Instructions: 1 tab orally daily tamsulosin 0.4 mg capsule See Rx Instructions .ROUTE .COMPLEX Qty: 90 1RF Dose Instruction: TAKE 1 CAPSULE BY MOUTH AT BEDTIME Rx Instructions: TAKE 1 CAPSULE BY MOUTH AT BEDTIME alcohol swabs Pads, Medicated 1 pad topical TID PRN (Reason: as needed to check blood sugar) 30 Days Qty: 100 11RF (DME) Underwear For Men Misc See Rx Instructions .ROUTE .MEDSUPPLY Qty: 60 11RF Rx Instructions: As directed, size medium miscellaneous medical supply [facility] See Rx Instructions miscellaneous .COMPLEX Qty: 1 0RF Rx Instructions: WHEELCHAIR miscellaneous ; Contour Next Test Strips Strip See Rx Instructions .ROUTE .COMPLEX Qty: 100 11RF Dose Instruction: TEST ONCE DAILY Rx Instructions: TEST ONCE DAILY miscellaneous medical supply [facility] See Rx Instructions miscellaneous .COMPLEX Qty: 1 0RF Rx Instructions: 1 pair diabetic shoes as directed; lisinopril 10 mg tablet See Rx Instructions .ROUTE .COMPLEX Qty: 90 0RF Dose Instruction: TAKE 1 TABLET BY MOUTH DAILY Rx Instructions: TAKE 1 TABLET BY MOUTH DAILY glipizide 5 mg tablet See Rx Instructions .ROUTE .COMPLEX Qty: 90 0RF Dose Instruction: TAKE 1 TABLET BY MOUTH DAILY Rx Instructions: TAKE 1 TABLET BY MOUTH DAILY furosemide 20 mg tablet See Rx Instructions .ROUTE .COMPLEX Qty: 180 0RF Dose Instruction: TAKE 1 TABLET BY MOUTH TWICE DAILY Rx Instructions: TAKE 1 TABLET BY MOUTH TWICE DAILY metformin 500 mg tablet extended release 24 hr See Rx Instructions .ROUTE .COMPLEX Qty: 180 0RF Dose Instruction: TAKE 2 TABLETS BY MOUTH EVERY NIGHT AT BEDTIME Rx Instructions: TAKE 2 TABLETS BY MOUTH EVERY NIGHT AT BEDTIME potassium chloride 10 mEq capsule, extended release See Rx Instructions .ROUTE .COMPLEX Qty: 90 0RF Dose Instruction: TAKE 1 CAPSULE BY MOUTH DAILY Rx Instructions: TAKE 1 CAPSULE BY MOUTH DAILY famotidine 20 mg tablet See Rx Instructions .ROUTE .COMPLEX Qty: 180 0RF Dose Instruction: TAKE 1 TABLET BY MOUTH TWICE DAILY Rx Instructions: TAKE 1 TABLET BY MOUTH TWICE DAILY Referrals: Rea Giles MD [Primary Care Provider] - Coding Level of Care Code ED [employer] for [employer] [place]
[2022-08-15 02:46] LABS: Basophils % 0.4 %; Eosinophils # 0.8 10^3/uL (0.0-0.8); Eosinophils % 8.2 %; Hemoglobin 13.4 g/dL (11.7-16.6); Lymphocytes # 1.6 10^3/uL (0.8-4.8); Lymphocytes % 17.2 %; Mean Corpuscular HGB Conc 31.9 g/dL (30.0-36.0); Mean Corpuscular Hemoglobin 29.3 pg (28.0-34.0); Mean Corpuscular Volume 91.7 fl (80-94); Mean Platelet Volume 10.4 fL (7.4-10.4); Monocytes # 1.2 10^3/uL (0.2-0.9); Monocytes % 12.8 %; Neutrophils # 5.66 10^3/uL (1.8-7.7); Neutrophils % 60.8 %; Nucleated Red Blood Cells % 0 %; Platelet Count 214 10^3/cmm (130-400); Red Blood Count 4.58 10^6/uL (4.1-5.3); Red Cell Distribution Width 11.9 % (12.1-15.1); White Blood Count 9.3 10^3/uL (4.0-10.0)
[2022-08-15 02:48] LABS: Erythrocyte Sedimentation Rate 20 mm/hr (0-10)
[2022-08-15] MEDS: doxycycline 100 MG in sodium chloride 0.9% (plus) 100 ML IV (02:54)
[2022-08-15 03:01] LABS: Alanine Aminotransferase 14 U/L (0-41); Alkaline Phosphatase 77 U/L (40-130); Aspartate Amino Transferase 18 U/L (0-40); Blood Urea Nitrogen 28 mg/dL (8-23); Calcium 9.3 mg/dL (8.5-10.5); Carbon Dioxide 24 mmol/L (22-29); Chloride 98 mmol/L (98-107); Globulin 2.9 g/dL (1.3-4.6); Glucose 122 mg/dL (65-115); Osmolality Calculated 287 mOsm/kg (285-295); Sodium 135 mmol/L (136-145); Total Bilirubin 0.2 mg/dL (0.15-1.2); Total Protein 6.9 g/dL (6.6-8.7)
[2022-08-15 03:20] LABS: Anion Gap 17.5 (5-19); Potassium 4.5 mmol/L (3.5-5.1)
[2022-08-15 04:44] VITALS: BP 101/60; PULSE 78; RESP 16; O2SAT 94
--- NOTE | 2022-08-15 11:57 | DCPLANNER ---
Addendum entered by Stefif Bourgeois 08/18/22 08:49: Patient had a follow up appointment scheduled with wound care - patient did attend appointment. Addendum entered by Steffi Bourgeois 08/15/22 14:43: Patient has a follow up appointment scheduled for Monday, August 17, 2022 at 8:[address] Astorga at [facility]. Original Note: manager personnel selection had message to schedule a follow up appointment for patient with wound care. manager personnel selection sent patients information to the front office staff at wound care. Patients information will be printed and reviewed. Clinic will call patient with appointment information.
== END 2022-08-15 04:38 | disposition home or self-care (01) ==
PROVIDERS: Physician Assistant; Emergency Provider Emergency Medicine; PCP Family Medicine
DX: R23.8 Other skin changes (principal); Z79.82 Long term (current) use of aspirin; Z79.84 Long term (current) use of oral hypoglycemic drugs; I11.0 Hypertensive heart disease with heart failure; I50.9 Heart failure, unspecified; E11.9 Type 2 diabetes mellitus without complications; I70.203 Unspecified atherosclerosis of native arteries of extremities, bilateral legs
CPT/HCPCS: 73630; 80053; 85025; 85651; 86140; 93925; 96365; 99284; J3490

== ENCOUNTER → 2022-08-17 08:17 | Outpatient (BNVA) | payer MEDICARE, MEDICAID, SELFPAY | PROVIDERS: PCP Family Medicine; Visit Provider Thoracic Surgery (Cardiothoracic Vascular Surgery) | DX: I96 Gangrene, not elsewhere classified (principal); E11.621 Type 2 diabetes mellitus with foot ulcer; L97.422 Non-pressure chronic ulcer of left heel and midfoot with fat layer exposed; L97.412 Non-pressure chronic ulcer of right heel and midfoot with fat layer exposed | CPT/HCPCS: 97597; 97598; 99213 ==

== ENCOUNTER → 2022-08-24 09:03 | Outpatient (BNVA) | payer MEDICARE, MEDICAID, SELFPAY | PROVIDERS: PCP Family Medicine; Visit Provider Thoracic Surgery (Cardiothoracic Vascular Surgery) | DX: I96 Gangrene, not elsewhere classified (principal); E11.621 Type 2 diabetes mellitus with foot ulcer; L97.422 Non-pressure chronic ulcer of left heel and midfoot with fat layer exposed | CPT/HCPCS: 97597; 97598 ==

== ENCOUNTER → 2022-08-31 09:31 | Outpatient (BNVA) | payer MEDICARE, MEDICAID, SELFPAY | PROVIDERS: PCP Family Medicine; Visit Provider Thoracic Surgery (Cardiothoracic Vascular Surgery) | DX: E11.621 Type 2 diabetes mellitus with foot ulcer (principal); L97.411 Non-pressure chronic ulcer of right heel and midfoot limited to breakdown of skin | CPT/HCPCS: 97597 ==

== ENCOUNTER → 2022-09-07 09:58 | Outpatient (BNVA) | payer MEDICARE, MEDICAID, SELFPAY | PROVIDERS: PCP Family Medicine; Visit Provider Thoracic Surgery (Cardiothoracic Vascular Surgery) | DX: Z09 Encounter for follow-up examination after completed treatment for conditions other than malignant neoplasm (principal); Z86.31 Personal history of diabetic foot ulcer | CPT/HCPCS: 99212 ==

== ENCOUNTER → 2022-09-23 13:48 | Outpatient (BNVA) | payer MEDICARE, MEDICAID, SELFPAY | PROVIDERS: PCP Family Medicine; Visit Provider Thoracic Surgery (Cardiothoracic Vascular Surgery) | DX: L30.9 Dermatitis, unspecified (principal); L03.114 Cellulitis of left upper limb | CPT/HCPCS: 99213 ==

== ENCOUNTER → 2022-11-01 12:50 | Outpatient (BNVA) | payer MEDICARE, MEDICAID, SELFPAY | PROVIDERS: PCP Family Medicine; Visit Provider Nurse Practitioner Family | DX: S49.92XA Unspecified injury of left shoulder and upper arm, initial encounter (principal); W19.XXXA Unspecified fall, initial encounter; S59.912A Unspecified injury of left forearm, initial encounter | CPT/HCPCS: 73080; 73090 ==

== ENCOUNTER → 2022-11-29 10:36 | Outpatient (BNVA) | payer MEDICARE, MEDICAID, SELFPAY | PROVIDERS: PCP Family Medicine; Referring Provider Thoracic Surgery (Cardiothoracic Vascular Surgery); Visit Provider Podiatrist Foot & Ankle Surgery | DX: M25.371 Other instability, right ankle (principal); I73.9 Peripheral vascular disease, unspecified; L60.3 Nail dystrophy; E11.40 Type 2 diabetes mellitus with diabetic neuropathy, unspecified; E11.621 Type 2 diabetes mellitus with foot ulcer; L97.422 Non-pressure chronic ulcer of left heel and midfoot with fat layer exposed; Z79.84 Long term (current) use of oral hypoglycemic drugs | CPT/HCPCS: 11721; 73610; 73630; 99204 ==

== ENCOUNTER → 2022-12-13 15:08 | Outpatient (BNVA) | payer MEDICARE, MEDICAID, SELFPAY | PROVIDERS: PCP Family Medicine; Visit Provider Podiatrist Foot & Ankle Surgery | DX: E11.40 Type 2 diabetes mellitus with diabetic neuropathy, unspecified (principal); I73.9 Peripheral vascular disease, unspecified; M25.371 Other instability, right ankle; L97.422 Non-pressure chronic ulcer of left heel and midfoot with fat layer exposed; E11.621 Type 2 diabetes mellitus with foot ulcer | CPT/HCPCS: 99214 ==

== ENCOUNTER → 2022-12-27 11:02 | Outpatient (BNVA) | payer MEDICARE, MEDICAID, SELFPAY | PROVIDERS: PCP Family Medicine; Visit Provider Family Medicine | DX: E11.9 Type 2 diabetes mellitus without complications (principal); E11.40 Type 2 diabetes mellitus with diabetic neuropathy, unspecified; I10 Essential (primary) hypertension | CPT/HCPCS: 80053; 80061; 83036 ==